=== PATIENT | female | born 1970 | race Caucasian/White ===

== ENCOUNTER 2017-02-09 01:15 | Emergency (ER) | payer SELFPAY ==
[~2017-02-09] VITALS: Ht 149.9 cm; Wt 58.8 kg
[~2017-02-09 01:15] MED LIST: ALBU18HF4 IH; ALBU2.5V7 AEROSOL; DIME25TA2 PO; ESOM20CA PO; FLUT1DIS ORAL INH; HYDR-4246 PO
--- OUTSIDE RECORDS SUMMARY | 2017-02-09 01:20 | XMS REPORT | Continuity of Care Document ---
Author Author [facility] Organization [facility] Address Unknown Phone Unavailable Support Name Relationship Address Phone UBRT BERRY APRN Caregiver [address] [place] [phone] OBEY BRANCH MD Caregiver [address] [place] [address] [place] [phone] KYLE GRIGSBY Next Of Kin Unknown [phone] CP Insurance Providers Payer Name Policy Number Subscriber Name Relationship Self Pay Briseida Woodall 18 Self Advance Directives Directive Response Recorded Date/Time Advanced Directives Type None 11/28/14 10:13pm Problems Medical Problems Problem Onset Date Status LLE Pain Unknown Active Sprain Unknown Active Cough Unknown Active viral syndrome Unknown Active Wrist contusion Unknown Active Wrist contusion Unknown Active Strain of right upper arm Unknown Active Strain of right upper arm Unknown Active Closed head injury Unknown Active Stress reaction Unknown Active Bronchitis Unknown Active Bronchitis Unknown Active Viral syndrome Unknown Active Bronchitis Unknown Active Elbow pain, left Unknown Active Shoulder pain, left Unknown Active Elbow pain, left Unknown Active Asthma exacerbation Unknown Active Asthma exacerbation Unknown Active Anxiety Unknown Active Chest wall pain Unknown Active Anxiety Unknown Active Right ankle pain Unknown Active Right ankle pain Unknown Active Anxiety Unknown Active Chest wall pain Unknown Active Medications Medication Dose Route Sig Days/Qty Instructions Order Date Discontinued Date Status Miscellaneous Information 05/06/12 01/23/13 Discontinued Albuterol Sulfate IH NEEDED 06/06/14 Active [Advair] 10/29/14 Active Albuterol Sulfate Unknown Dose INH NEEDED 11/28/14 Active Social History Social History Problem Response Recorded Date/Time Hx Substance Use No 11/28/2014 10:40pm Hx Alcohol Use No 11/28/2014 10:40pm Tobacco Usage smoke 12/05/2013 3:27am Query Response Start Date Stop Date Smoking Status Unknown if ever smoked Hospital Discharge Instructions No hospital discharge instructions. Plan of Care No plan of care. Functional Status Query Response Date Recorded Physical Hygiene Self November 28, 2014 10:40pm Disabilities None November 28, 2014 10:40pm Devices Used None November 28, 2014 10:40pm Dressing Self November 28, 2014 10:40pm Ambulation Self November 28, 2014 10:40pm Diet Self November 28, 2014 10:40pm Mental Status Alert Oriented November 28, 2014 11:47pm Disabilities None November 28, 2014 10:40pm Devices Used None November 28, 2014 10:40pm Physical Hygiene Self November 28, 2014 10:40pm Dressing Self November 28, 2014 10:40pm Ambulation Self November 28, 2014 10:40pm Diet Self November 28, 2014 10:40pm Allergies, Adverse Reactions, Alerts Allergen Type Severity Reaction Status Last Updated Penicillin Allergy Unknown Active 11/28/14 Aspirin Allergy Severe HIVES AND "THROAT LOCKS UP" Active 11/28/14 FLU Allergy Unknown Active 09/14/14 Immunizations Name Given Type Hx Influenza Vaccination N ALLERGIC Historical Hx Pneumococcal Vaccination No Historical Hx Tetanus, Diptheria, Pertussis N N/A SKIN INTACT Historical Hx Influenza Vaccination N ALLERGIC Historical Hx Tetanus, Diptheria, Pertussis N N/A SKIN INTACT Historical Vital Signs Acute Vital Signs Vital Response Date/Time Temperature (Fahrenheit) 98.2 deg F (96.8 - 99.1) Temperature (Calculated Celsius) 36.19954 degrees C (36.0 - 37.3) Pulse Rate (adult) 94 bpm (60 - 100) Respiratory Rate 20 breaths/min (10 - 20) O2 Sat by Pulse Oximetry 97 % (90 - 100) Blood Pressure 114/66 mm Hg Height 4 ft 11 in Weight 113 lb Body Mass Index 23.0 kg/m^2 Results Test Source Date Result Interp. Ref. Range Comments Activated Partial Thromboplast Time November 28, 2014 10:55pm 35.3 SEC N 24 -36 Alanine Aminotransferase (ALT/SGPT) November 28, 2014 10:55pm 25 U/L N 9- 52 Albumin November 28, 2014 10:55pm 4.1 G/DL N 3.5-5.0 Albumin/Globulin Ratio November 28, 2014 10:55pm 1.4 RATIO N 1.1-2.2 Alkaline Phosphatase November 28, 2014 10:55pm 82 U/L N 38-126 Anion Gap November 28, 2014 10:55pm 13 MEQ/L N 5-15 Aspartate Amino Transf (AST/SGOT) November 28, 2014 10:55pm 14 U/L N 14-36 BUN/Creatinine Ratio November 28, 2014 10:55pm 21 RATIO N 6-26 Band Neutrophils # September 19, 2014 5:32pm 0.4 T/MM3 - Band Neutrophils % September 19, 2014 5:32pm 4.0 % N 0-6 Basophils # (Auto) November 28, 2014 10:55pm 0.0 T/MM3 N 0-0.2 Basophils # (Manual) September 19, 2014 5:32pm 0.0 T/MM3 N 0-0.2 Basophils % (Manual) September 19, 2014 5:32pm 0.0 % N 0-2 Basophils (%) (Auto) November 28, 2014 10:55pm 0.3 % N 0-2 Blood Urea Nitrogen November 28, 2014 10:55pm 17.0 MG/DL N 7-17 Calcium Level November 28, 2014 10:55pm 9.2 MG/DL N 8.4-10.2 Calculated Osmolality November 28, 2014 10:55pm 282 MOSM/KG H 261-280 Carbon Dioxide Level November 28, 2014 10:55pm 26 MEQ/L N 22-30 Chemistry Specimen Hemolysis November 28, 2014 10:55pm < 15 0-25 0-25: No Hemolysis.26-70: Slight Hemolysis - can falsely elevate K and Urine Protein. 71-285: Moderate Hemolysis - can falsely elevate K, Troponin I, CA 19-9, PTH, CSF GLucose, and Urine Protein, and can falsely decrease Phenytoin. 286-999: Gross Hemolysis - can falsely elevate K, Troponin I, CA 19-9, PTH, CSF Glucose, and Urine Protine, and can falsely decrease Phenytoin. Recommend specimen recollection. Chlamydia trachomatis Amplified DNA October 01, 2011 9:06pm Ref lab rpt scanned - --- 10/03/112141 ---CHLAMDNA previously reported as: SENT OUT Chloride Level November 28, 2014 10:55pm 106 MEQ/L N 98-107 Conjugated Bilirubin September 19, 2014 5:32pm 0.00 MG/DL N 0.00-0.30 Creatinine November 28, 2014 10:55pm 0.8 MG/DL N 0.7-1.2 D-Dimer May 06, 2012 6:30am < 150 NG/ML 0-230 <224 NG/ML= PRESUMPTIVE NEGATIVE FOR PE OR DVT>224 NG/ML=ADDITIONAL EVALUATION FOR PE OR DVT RECOMMENDED Eosinophils # (Auto) November 28, 2014 10:55pm 0.2 T/MM3 N 0-0.5 Eosinophils # (Manual) September 19, 2014 5:32pm 0.0 T/MM3 N 0-0.5 Eosinophils % (Manual) September 19, 2014 5:32pm 0.0 % N 0-4 Eosinophils (%) (Auto) November 28, 2014 10:55pm 1.7 % N 0-4 Globulin November 28, 2014 10:55pm 3.0 G/DL N 2.4-3.6 Glomerular Filtration Rate Calc November 28, 2014 10:55pm 78 - Glucose Level November 28, 2014 10:55pm 112 MG/DL H 65-110 Group A Streptococcus Screen September 14, 2014 1:42pm Negative - Strep culture confirmation to follow Hematocrit November 28, 2014 10:55pm 38.7 % N 36-46 Hemoglobin November 28, 2014 10:55pm 12.7 GM/DL N 12-16 Icterus Index November 28, 2014 10:55pm < 2 0-7 Immature Granulocyte # (Auto) November 28, 2014 10:55pm 0.01 T/MM3 N 0.00- 0.03 Immature Granulocyte % (Auto) November 28, 2014 10:55pm 0.1 % N 0.0-0.5 Influenza Type A Antigen September 19, 2014 6:26pm Negative - Negative for Flu A protein antigen. Assay sensitivity is90%. Influenza Type B Antigen September 19, 2014 6:26pm Negative - Negative for Flu B protein antigen. Assay sensitivity is90%. Lab Scanned Report October 03, 2011 9:59pm REFERENCE LAB [id number] - Lymphocytes # (Auto) November 28, 2014 10:55pm 2.1 T/MM3 N 1-4.8 Lymphocytes # (Manual) September 19, 2014 5:32pm 2.2 T/MM3 N 1-4.8 Lymphocytes % (Manual) September 19, 2014 5:32pm 22.0 % L 23-45 Lymphocytes (%) (Auto) November 28, 2014 10:55pm 24.7 % N 23-45 Magnesium Level November 28, 2014 10:55pm 1.9 MG/DL N 1.6-2.3 Mean Corpuscular Hemoglobin November 28, 2014 10:55pm 30.5 UUG N 26-34 Mean Corpuscular Hemoglobin Concent November 28, 2014 10:55pm 32.8 GM/DL N 31-37 Mean Corpuscular Volume November 28, 2014 10:55pm 92.8 UM3 N 80-100 Mean Platelet Volume November 28, 2014 10:55pm 9.0 UM3 L 9.4-12.4 Monocytes # (Auto) November 28, 2014 10:55pm 0.8 T/MM3 N 0-0.8 Monocytes # (Manual) September 19, 2014 5:32pm 0.5 T/MM3 N 0-0.8 Monocytes % (Manual) September 19, 2014 5:32pm 5.0 % N 0-9.0 Monocytes (%) (Auto) November 28, 2014 10:55pm 9.6 % H 0-9.0 GQ-Ssu-A-Type Natriuretic Peptide November 28, 2014 10:55pm 326 PG/ML H 0- 175 Rule in cut points: <50 years old=450; 50-75 years old=900; >75 years old=1800; When utilizing ProBNP rule-in cut points, adjustment for impaired renal function is typically not required. Neutrophils # (Auto) November 28, 2014 10:55pm 5.5 T/MM3 N 1.8-7.7 Neutrophils # (Manual) September 19, 2014 5:32pm 6.4 T/MM3 N 1.8-7.7 Neutrophils % (Manual) September 19, 2014 5:32pm 65.0 % N 33-66 Neutrophils (%) (Auto) November 28, 2014 10:55pm 63.6 % N 33-66 Platelet Count November 28, 2014 10:55pm 365 T/MM3 N 130-400 Potassium Level November 28, 2014 10:55pm 3.6 MEQ/L N 3.6-5 Prothromb Time International Ratio November 28, 2014 10:55pm 1.06 N 0.81- 1.09 THERAPUTIC RANGE=2.00-3.00 FOR ANTI-THROMBOSIS THERAPUTIC RANGE=2.50- 3.50 FOR IMPLANTED VALVE RDW Standard Deviation November 28, 2014 10:55pm 44.7 FL N 36.9-50.2 Reactive Lymphocytes # September 19, 2014 5:32pm 0.4 T/MM3 H 0-0 Reactive Lymphocytes % September 19, 2014 5:32pm 4.0 % H 0-0 Red Blood Count November 28, 2014 10:55pm 4.17 M/MM3 N 4.00-5.20 Sodium Level November 28, 2014 10:55pm 145 MEQ/L H 134-144 Thyroid Stimulating Hormone (TSH) November 28, 2014 10:55pm 0.52 MIU/L N 0.47-4.68 Total Bilirubin November 28, 2014 10:55pm 0.20 MG/DL N 0.20-1.30 Total Protein November 28, 2014 10:55pm 7.1 G/DL N 6.3-8.2 Troponin I November 28, 2014 10:55pm < 0.012 ng/ml 0-0.12 Turbidity November 28, 2014 10:55pm < 20 0-20 Unconjugated Bilirubin September 19, 2014 5:32pm 0.20 MG/DL N 0.00-1.10 Urine Bacteria November 28, 2014 11:51pm None seen - Has specimen been collected/obtained? Y Urine Bilirubin November 28, 2014 11:51pm Negative - Has specimen been collected/obtained? Y Urine Blood November 28, 2014 11:51pm 1+ H - Has specimen been collected/ obtained? Y Urine Collection Type November 28, 2014 11:51pm Cleancatch-midstream - Has specimen been collected/obtained? Y Urine Color November 28, 2014 11:51pm Yellow - Has specimen been collected/obtained? Y Urine Glucose (UA) November 28, 2014 11:51pm Negative - Has specimen been collected/obtained? Y Urine Ketones November 28, 2014 11:51pm Negative - Has specimen been collected/obtained? Y Urine Leukocyte Esterase November 28, 2014 11:51pm Negative - Has specimen been collected/obtained? Y Urine Microscopic Not Indicated October 01, 2011 9:20pm Not indicated - Has specimen been collected/obtained? Y Urine Nitrite November 28, 2014 11:51pm Negative - Has specimen been collected/obtained? Y Urine Protein November 28, 2014 11:51pm Negative - Has specimen been collected/obtained? Y Urine RBC November 28, 2014 11:51pm None seen /HPF - Has specimen been collected/obtained? Y Urine Specific [place] November 28, 2014 11:51pm >=1.030 H - Has specimen been collected/obtained? Y Urine Squamous Epithelial Cells November 28, 2014 11:51pm 0-5 - Has specimen been collected/obtained? Y Urine Turbidity November 28, 2014 11:51pm Clear - Has specimen been collected/obtained? Y Urine Urobilinogen November 28, 2014 11:51pm 0.2 EU/DL - Has specimen been collected/obtained? Y Urine WBC November 28, 2014 11:51pm 1-3 /HPF - Has specimen been collected/obtained? Y Urine pH November 28, 2014 11:51pm 6.0 - Has specimen been collected/ obtained? Y White Blood Count November 28, 2014 10:55pm 8.7 T/MM3 N 4.5-11.0 Blood Culture Blood November 30, 2010 12:39am NO GROWTH AFTER 5 DAYS Wet Prep Vagina October 01, 2011 9:06pm Group A Streptococcus Culture Throat September 14, 2014 2:00pm Name: BRISEIDA WOODALL Unit #: [id number] : 1970 Sex: F Loc / Svc: ED DOS: 11/28/14 Signed Report #: [id number] DIAGNOSTIC IMAGING REPORT TYPE OF EXAM: CHEST, PA & LATERAL Dictated By: JOHN VINES MD INDICATION: ITS.REASON: CHEST PAIN CHEST 2-VIEWS UPRIGHT (PA & LAT) COMPARISON: October 30, 2014 FINDINGS: The lungs are clear without evidence of focal abnormal airspace opacity. There is no pleural effusion or pneumothorax. The heart size, mediastinal contours and pulmonary vascularity are within normal limits. There is no significant skeletal abnormality. IMPRESSION: No acute cardiopulmonary disease. . Procedures Procedure Status Date Provider(s) HYDRATION IV INFUSION INIT completed 09/14/14 HYDRATE IV INFUSION ADD-ON completed 09/19/14 THER/PROPH/DIAG INJ IV PUSH completed 09/19/14 TX/PRO/DX INJ NEW DRUG ADDON completed 09/19/14 TX/PRO/DX INJ NEW DRUG ADDON completed 09/19/14 X-RAY EXAM OF SHOULDER completed 10/04/14 X-RAY EXAM OF ELBOW completed 10/04/14 EMERGENCY DEPT VISIT completed 10/04/14 Encounters Encounter Location Date/Time Departed Emergency Room [facility] 11/28/14 10:09pm Departed Emergency Room [facility] 11/26/14 12:34am Departed Emergency Room [facility] 10/30/14 2:11am Departed Emergency Room [facility] 10/28/14 11:41pm Departed Emergency Room [facility] 10/04/14 2:05pm Departed Emergency Room [facility] 09/19/14 5:45pm Departed Emergency Room [facility] 09/14/14 1:20pm Recent Diagnosis
--- OUTSIDE RECORDS SUMMARY | 2017-02-09 01:20 | XMS REPORT | Continuity of Care Document ---
Author Author [facility] Organization [facility] Address Unknown Phone Unavailable Support Name Relationship Address Phone BURT BERRY APRN Caregiver [address] [place] [phone] CRICKET BOLAND MD Caregiver [facility] [place] [address] [place] [address] KYLE GRIGSBY Next Of Kin Unknown [phone] CP Insurance Providers Payer Name Policy Number Subscriber Name Relationship Self Pay Briseida Woodall 18 Self Advance Directives Directive Response Recorded Date/Time Advanced Directives Type None 11/26/14 12:40am Problems Medical Problems Problem Onset Date Status [...] Unknown Active Right ankle pain Unknown Active Medications Medication Dose Route Sig Days/Qty Instructions Order Date Discontinued Date Status Miscellaneous Information 05/06/12 01/23/13 Discontinued Albuterol Sulfate IH NEEDED 06/06/14 Active Hydrocodone/Acetaminophen 1 Tab PO EVERY 4-6 HOURS PRN PAIN 20 Qty 09/06 Active [Advair] 10/29/14 Active Hydrocodone/Acetaminophen 1-2 Tab PO Every 6 Hours PRN PAIN 15 Qty 03/07 Active Social History Social History Problem Response Recorded Date/Time Hx Substance Use No 11/26/2014 12:55am Hx Alcohol Use No 11/26/2014 12:55am Tobacco Usage smoke 12/05/2013 3:27am Query Response Start Date Stop Date Smoking Status Unknown if ever smoked Hospital Discharge Instructions No hospital discharge instructions. Plan of Care No plan of care. Functional Status Query Response Date Recorded Physical Hygiene Self November 26, 2014 12:55am Disabilities None November 26, 2014 12:55am Devices Used None November 26, 2014 12:55am Dressing Self November 26, 2014 12:55am Ambulation Self November 26, 2014 12:55am Diet Self November 26, 2014 12:55am Mental Status Alert Oriented November 26, 2014 1:44am Disabilities None November 26, 2014 12:55am Devices Used None November 26, 2014 12:55am Physical Hygiene Self November 26, 2014 12:55am Dressing Self November 26, 2014 12:55am Ambulation Self November 26, 2014 12:55am Diet Self November 26, 2014 12:55am Allergies, Adverse Reactions, Alerts Allergen Type Severity Reaction Status Last Updated Penicillin Allergy Unknown Active 10/04/14 Aspirin Allergy Severe HIVES AND "THROAT LOCKS UP" Active 10/04/14 FLU Allergy Unknown Active 09/14/14 Immunizations Name Given Type Hx Influenza Vaccination N ALLERGIC Historical Hx Pneumococcal Vaccination No Historical Hx Tetanus, Diptheria, Pertussis N N/A SKIN INTACT Historical Hx Influenza Vaccination N ALLERGIC Historical Hx Tetanus, Diptheria, Pertussis N N/A SKIN INTACT Historical Vital Signs Acute Vital Signs Vital Response Date/Time Temperature (Fahrenheit) 97.4 deg F (96.8 - 99.1) Temperature (Calculated Celsius) 36.35408 degrees C (36.0 - 37.3) Pulse Rate (adult) 81 bpm (60 - 100) Respiratory Rate 20 breaths/min (10 - 20) O2 Sat by Pulse Oximetry 98 % (90 - 100) Blood Pressure 125/71 mm Hg Height 4 ft 11 in Weight 108 lb Body Mass Index 21.0 kg/m^2 Results Test Source Date Result Interp. Ref. Range Comments Activated Partial Thromboplast Time October 30, 2014 2:00am 35.4 SEC N 24-36 Alanine Aminotransferase (ALT/SGPT) October 30, 2014 2:00am 25 U/L N 9- 52 Albumin October 30, 2014 2:00am 5.2 G/DL H 3.5-5.0 Albumin/Globulin Ratio October 30, 2014 2:00am 1.6 RATIO N 1.1-2.2 Alkaline Phosphatase October 30, 2014 2:00am 111 U/L N 38-126 Anion Gap October 30, 2014 2:00am 18 MEQ/L H 5-15 Aspartate Amino Transf (AST/SGOT) October 30, 2014 2:00am 17 U/L N 14- 36 BUN/Creatinine Ratio October 30, 2014 2:00am 21 RATIO N 6-26 Band Neutrophils # September 19, 2014 5:32pm 0.4 T/MM3 - Band Neutrophils % September 19, 2014 5:32pm 4.0 % N 0-6 Basophils # (Auto) October 30, 2014 2:00am 0.0 T/MM3 N 0-0.2 Basophils # (Manual) September 19, 2014 5:32pm 0.0 T/MM3 N 0-0.2 Basophils % (Manual) September 19, 2014 5:32pm 0.0 % N 0-2 Basophils (%) (Auto) October 30, 2014 2:00am 0.1 % N 0-2 Blood Urea Nitrogen October 30, 2014 2:00am 17.0 MG/DL N 7-17 Calcium Level October 30, 2014 2:00am 10.5 MG/DL H 8.4-10.2 Calculated Osmolality October 30, 2014 2:00am 284 MOSM/KG H 261-280 Carbon Dioxide Level October 30, 2014 2:00am 27 MEQ/L N 22-30 Chemistry Specimen Hemolysis October 30, 2014 2:00am < 15 0-25 0-25 : No Hemolysis.26-70: Slight Hemolysis - can falsely [...] 9:06pm Ref lab rpt scanned - --- 10/03/11 [id number] ---CHLAMDNA previously reported as: SENT OUT Chloride Level October 30, 2014 2:00am 102 MEQ/L N 98-107 Conjugated Bilirubin September 19, 2014 5:32pm 0.00 MG/DL N 0.00-0.30 Creatinine October 30, 2014 2:00am 0.8 MG/DL N 0.7-1.2 D-Dimer May 06, 2012 6:30am < 150 NG/ML 0-230 <224 NG/ML= PRESUMPTIVE NEGATIVE FOR PE OR DVT>224 NG/ML=ADDITIONAL EVALUATION FOR PE OR DVT RECOMMENDED Eosinophils # (Auto) October 30, 2014 2:00am 0.1 T/MM3 N 0-0.5 Eosinophils # (Manual) September 19, 2014 5:32pm 0.0 T/MM3 N 0-0.5 Eosinophils % (Manual) September 19, 2014 5:32pm 0.0 % N 0-4 Eosinophils (%) (Auto) October 30, 2014 2:00am 0.3 % N 0-4 Globulin October 30, 2014 2:00am 3.3 G/DL N 2.4-3.6 Glomerular Filtration Rate Calc October 30, 2014 2:00am 78 - Glucose Level October 30, 2014 2:00am 103 MG/DL N 65-110 Group A Streptococcus Screen September 14, 2014 1:42pm Negative - Strep culture confirmation to follow Hematocrit October 30, 2014 2:00am 41.1 % N 36-46 Hemoglobin October 30, 2014 2:00am 13.9 GM/DL N 12-16 Icterus Index October 30, 2014 2:00am < 2 0-7 Immature Granulocyte # (Auto) October 30, 2014 2:00am 0.03 T/MM3 N 0.00 -0.03 Immature Granulocyte % (Auto) October 30, 2014 2:00am 0.2 % N 0.0-0.5 Influenza Type A Antigen September 19, 2014 6:26pm Negative - Negative for Flu A protein antigen. Assay sensitivity is90%. Influenza Type B Antigen September 19, 2014 6:26pm Negative - Negative for Flu B protein antigen. Assay sensitivity is90%. Lab Scanned Report October 03, 2011 9:59pm [facility] LAB [id number] - Lymphocytes # (Auto) October 30, 2014 2:00am 4.0 T/MM3 N 1-4.8 Lymphocytes # (Manual) September 19, 2014 5:32pm 2.2 T/MM3 N 1-4.8 Lymphocytes % (Manual) September 19, 2014 5:32pm 22.0 % L 23-45 Lymphocytes (%) (Auto) October 30, 2014 2:00am 27.2 % N 23-45 Mean Corpuscular Hemoglobin October 30, 2014 2:00am 31.2 UUG N 26-34 Mean Corpuscular Hemoglobin Concent October 30, 2014 2:00am 33.8 GM/DL N 31-37 Mean Corpuscular Volume October 30, 2014 2:00am 92.4 UM3 N 80-100 Mean Platelet Volume October 30, 2014 2:00am 9.7 UM3 N 9.4-12.4 Monocytes # (Auto) October 30, 2014 2:00am 1.4 T/MM3 H 0-0.8 Monocytes # (Manual) September 19, 2014 5:32pm 0.5 T/MM3 N 0-0.8 Monocytes % (Manual) September 19, 2014 5:32pm 5.0 % N 0-9.0 Monocytes (%) (Auto) October 30, 2014 2:00am 9.4 % H 0-9.0 QJ-Vgr-T-Type Natriuretic Peptide October 30, 2014 2:00am 88 PG/ML N 0- 175 Rule in cut points: <50 years old=450; 50-75 years old=900; >75 years old=1800; When utilizing ProBNP rule-in cut points, adjustment for impaired renal function is typically not required. Neutrophils # (Auto) October 30, 2014 2:00am 9.3 T/MM3 H 1.8-7.7 Neutrophils # (Manual) September 19, 2014 5:32pm 6.4 T/MM3 N 1.8-7.7 Neutrophils % (Manual) September 19, 2014 5:32pm 65.0 % N 33-66 Neutrophils (%) (Auto) October 30, 2014 2:00am 62.8 % N 33-66 Platelet Count October 30, 2014 2:00am 459 T/MM3 H 130-400 Potassium Level October 30, 2014 2:00am 4.1 MEQ/L N 3.6-5 Prothromb Time International Ratio October 30, 2014 2:00am 0.97 N 0.81- 1.09 THERAPUTIC RANGE=2.00-3.00 FOR ANTI-THROMBOSIS THERAPUTIC RANGE=2.50- 3.50 FOR IMPLANTED VALVE RDW Standard Deviation October 30, 2014 2:00am 45.6 FL N 36.9-50.2 Reactive Lymphocytes # September 19, 2014 5:32pm 0.4 T/MM3 H 0-0 Reactive Lymphocytes % September 19, 2014 5:32pm 4.0 % H 0-0 Red Blood Count October 30, 2014 2:00am 4.45 M/MM3 N 4.00-5.20 Sodium Level October 30, 2014 2:00am 147 MEQ/L H 134-144 Total Bilirubin October 30, 2014 2:00am 0.60 MG/DL N 0.20-1.30 Total Protein October 30, 2014 2:00am 8.5 G/DL H 6.3-8.2 Troponin I October 30, 2014 2:00am < 0.012 ng/ml 0-0.12 Turbidity October 30, 2014 2:00am < 20 0-20 Unconjugated Bilirubin September 19, 2014 5:32pm 0.20 MG/DL N 0.00-1.10 Urine Bacteria September 14, 2014 3:00pm None seen - Has specimen been collected/obtained? Y Urine Bilirubin September 14, 2014 3:00pm Negative - Has specimen been collected/obtained? Y Urine Blood September 14, 2014 3:00pm 1+ H - Has specimen been collected /obtained? Y Urine Collection Type September 14, 2014 3:00pm Cleancatch-midstream - Has specimen been collected/obtained? Y Urine Color September 14, 2014 3:00pm Yellow - Has specimen been collected/obtained? Y Urine Glucose (UA) September 14, 2014 3:00pm Negative - Has specimen been collected/obtained? Y Urine Ketones September 14, 2014 3:00pm Trace H - Has specimen been collected/obtained? Y Urine Leukocyte Esterase September 14, 2014 3:00pm Negative - Has specimen been collected/obtained? Y Urine Microscopic Not Indicated October 01, 2011 9:20pm Not indicated - Has specimen been collected/obtained? Y Urine Nitrite September 14, 2014 3:00pm Negative - Has specimen been collected/obtained? Y Urine Protein September 14, 2014 3:00pm Negative - Has specimen been collected/obtained? Y Urine RBC September 14, 2014 3:00pm Trace /HPF - Has specimen been collected/obtained? Y Urine Specific [place] September 14, 2014 3:00pm 1.010 L - Has specimen been collected/obtained? Y Urine Turbidity September 14, 2014 3:00pm Clear - Has specimen been collected/obtained? Y Urine Urobilinogen September 14, 2014 3:00pm 0.2 EU/DL - Has specimen been collected/obtained? Y Urine WBC September 14, 2014 3:00pm None seen /HPF - Has specimen been collected/obtained? Y Urine pH September 14, 2014 3:00pm 5.5 - Has specimen been collected/ obtained? Y White Blood Count October 30, 2014 2:00am 14.8 T/MM3 H 4.5-11.0 Blood Culture Blood November 30, 2010 12:39am NO GROWTH AFTER 5 DAYS Wet Prep Vagina October 01, 2011 9:06pm Group A Streptococcus Culture Throat September 14, 2014 2:00pm Name: BRISEIDA WOODALL Unit #: [id number] : 1970 Sex: F Loc / Svc: ED DOS: 10/30/14 Signed Report #: [id number] DIAGNOSTIC IMAGING REPORT TYPE OF EXAM: CHEST, PA & LATERAL Dictated By: ENRIKE VINES MD INDICATION: ITS.REASON: CHEST PAIN, SHORTNESS OF BREATH CHEST 2-VIEWS UPRIGHT (PA & LAT) COMPARISON: September 19, 2014 FINDINGS: The lungs are clear without [...] Encounters Encounter Location Date/Time Departed Emergency Room [facility] 11/26/14 12:34am Departed Emergency Room [facility] 10/30/14 2:11am Departed Emergency Room [facility] 10/28/14 11:41pm Departed Emergency Room [facility] 10/04/14 2:05pm Departed Emergency Room [facility] 09/19/14 5:45pm Departed Emergency Room [facility] 09/14/14 1:20pm Recent Diagnosis
--- OUTSIDE RECORDS SUMMARY | 2017-02-09 01:20 | XMS REPORT | Continuity of Care Document ---
Author Author [facility] Organization [facility] Address Unknown Phone Unavailable Support Name Relationship Address Phone RENNY INMAN DO Caregiver [facility] [address] [place], [place] [id number] BURT BERRY EXECUTIVE MEETING MANAGER Caregiver [address] [place] [address] KYLE GRIGSBY Next Of Kin Unknown [phone] CP Insurance Providers Payer Name Policy Number Subscriber Name Relationship Self Pay Briseida Woodall 17 Self Advance Directives Directive Response Recorded Date/Time Advanced Directives Type None 10/04/14 2:10pm Problems Medical Problems Problem Onset Date Status [...] Unknown Active Elbow pain, left Unknown Active Medications Medication Dose Route Sig Days/Qty Instructions Order Date Discontinued Date Status Miscellaneous Information 05/06/12 01/23/13 Discontinued Albuterol Sulfate IH NEEDED 06/06/14 Active Hydrocodone/Acetaminophen 1 Tab PO EVERY 4-6 HOURS PRN PAIN 20 Qty 09/06 Active Social History Social History Problem Response Recorded Date/Time Hx Substance Use No 10/04/2014 2:10pm Hx Alcohol Use No 10/04/2014 2:10pm Tobacco Usage smoke 12/05/2013 3:27am Query Response Start Date Stop Date Smoking Status Unknown if ever smoked Hospital Discharge Instructions No hospital discharge instructions. Plan of Care No plan of care. Functional Status Query Response Date Recorded Physical Hygiene Self October 04, 2014 2:10pm Disabilities None October 04, 2014 2:10pm Devices Used None October 04, 2014 2:10pm Dressing Self October 04, 2014 2:10pm Ambulation Self October 04, 2014 2:10pm Diet Self October 04, 2014 2:10pm Mental Status Alert Oriented October 04, 2014 2:10pm Disabilities None October 04, 2014 2:10pm Devices Used None October 04, 2014 2:10pm Physical Hygiene Self October 04, 2014 2:10pm Dressing Self October 04, 2014 2:10pm Ambulation Self October 04, 2014 2:10pm Diet Self October 04, 2014 2:10pm Allergies, Adverse Reactions, Alerts Allergen Type Severity Reaction Status Last Updated Penicillin Allergy Unknown Active 10/04/14 Aspirin Allergy Severe HIVES AND "THROAT LOCKS UP" Active 10/04/14 FLU Allergy Unknown Active 09/14/14 Immunizations Name Given Type Hx Influenza Vaccination No Historical Hx Tetanus, Diptheria, Pertussis N/A SKIN INTACT Historical Hx Influenza Vaccination No Historical Hx Tetanus, Diptheria, Pertussis N/A SKIN INTACT Historical Vital Signs Acute Vital Signs Vital Response Date/Time Temperature (Fahrenheit) 98.0 deg F (96.8 - 99.1) Temperature (Calculated Celsius) 36.26239 degrees C (36.0 - 37.3) Pulse Rate (adult) 68 bpm (60 - 100) Respiratory Rate 14 breaths/min (10 - 20) O2 Sat by Pulse Oximetry 96 % (90 - 100) Blood Pressure 115/74 mm Hg Height 4 ft 11 in Weight 113 lb Body Mass Index 22.0 kg/m^2 Results Test Source Date Result Interp. Ref. Range Comments Activated Partial Thromboplast Time May 06, 2012 6:30am 34.2 SEC N 24 -36 Alanine Aminotransferase (ALT/SGPT) September 19, 2014 5:32pm 20 U/L N 9- 52 Albumin September 19, 2014 5:32pm 4.9 G/DL N 3.5-5.0 Albumin/Globulin Ratio September 19, 2014 5:32pm 1.5 RATIO N 1.1-2.2 Alkaline Phosphatase September 19, 2014 5:32pm 115 U/L N 38-126 Anion Gap September 19, 2014 5:32pm 12 MEQ/L N 5-15 Aspartate Amino Transf (AST/SGOT) September 19, 2014 5:32pm 21 U/L N 14- 36 BUN/Creatinine Ratio September 19, 2014 5:32pm 23 RATIO N 6-26 Band Neutrophils # September 19, 2014 5:32pm 0.4 T/MM3 - Band Neutrophils % September 19, 2014 5:32pm 4.0 % N 0-6 Basophils # (Auto) September 14, 2014 2:09pm 0.0 T/MM3 N 0-0.2 Basophils # (Manual) September 19, 2014 5:32pm 0.0 T/MM3 N 0-0.2 Basophils % (Manual) September 19, 2014 5:32pm 0.0 % N 0-2 Basophils (%) (Auto) September 14, 2014 2:09pm 0.2 % N 0-2 Blood Urea Nitrogen September 19, 2014 5:32pm 16.0 MG/DL N 7-17 Calcium Level September 19, 2014 5:32pm 9.9 MG/DL N 8.4-10.2 Calculated Osmolality September 19, 2014 5:32pm 270 MOSM/KG N 261-280 Carbon Dioxide Level September 19, 2014 5:32pm 27 MEQ/L N 22-30 Chloride Level September 19, 2014 5:32pm 101 MEQ/L N 98-107 Conjugated Bilirubin September 19, 2014 5:32pm 0.00 MG/DL N 0.00-0.30 Creatinine September 19, 2014 5:32pm 0.7 MG/DL N 0.7-1.2 D-Dimer May 06, 2012 6:30am < 150 NG/ML 0-230 <224 NG/ML= PRESUMPTIVE NEGATIVE FOR PE OR DVT>224 NG/ML=ADDITIONAL EVALUATION FOR PE OR DVT RECOMMENDED Eosinophils # (Auto) September 14, 2014 2:09pm 0.2 T/MM3 N 0-0.5 Eosinophils # (Manual) September 19, 2014 5:32pm 0.0 T/MM3 N 0-0.5 Eosinophils % (Manual) September 19, 2014 5:32pm 0.0 % N 0-4 Eosinophils (%) (Auto) September 14, 2014 2:09pm 1.6 % N 0-4 Globulin September 19, 2014 5:32pm 3.2 G/DL N 2.4-3.6 Glucose Level September 19, 2014 5:32pm 95 MG/DL N 65-110 Group A Streptococcus Screen September 14, 2014 1:42pm Negative - Strep culture confirmation to follow Hematocrit September 19, 2014 5:32pm 45.4 % N 36-46 Hemoglobin September 19, 2014 5:32pm 15.2 GM/DL N 12-16 Influenza Type A Antigen September 19, 2014 6:26pm Negative - Negative for Flu A protein antigen. Assay sensitivity is90%. Influenza Type B Antigen September 19, 2014 6:26pm Negative - Negative for Flu B protein antigen. Assay sensitivity is90%. Lymphocytes # (Auto) September 14, 2014 2:09pm 0.9 T/MM3 L 1-4.8 Lymphocytes # (Manual) September 19, 2014 5:32pm 2.2 T/MM3 N 1-4.8 Lymphocytes % (Manual) September 19, 2014 5:32pm 22.0 % L 23-45 Lymphocytes (%) (Auto) September 14, 2014 2:09pm 9.9 % L 23-45 Mean Corpuscular Hemoglobin September 19, 2014 5:32pm 30.3 UUG N 26-34 Mean Corpuscular Hemoglobin Concent September 19, 2014 5:32pm 33.5 GM/DL N 31-37 Mean Corpuscular Volume September 19, 2014 5:32pm 90.4 UM3 N 80-100 Mean Platelet Volume September 19, 2014 5:32pm 9.4 UM3 N 9.4-12.4 Monocytes # (Auto) September 14, 2014 2:09pm 0.6 T/MM3 N 0-0.8 Monocytes # (Manual) September 19, 2014 5:32pm 0.5 T/MM3 N 0-0.8 Monocytes % (Manual) September 19, 2014 5:32pm 5.0 % N 0-9.0 Monocytes (%) (Auto) September 14, 2014 2:09pm 6.2 % N 0-9.0 Neutrophils # (Auto) September 14, 2014 2:09pm 7.8 T/MM3 H 1.8-7.7 Neutrophils # (Manual) September 19, 2014 5:32pm 6.4 T/MM3 N 1.8-7.7 Neutrophils % (Manual) September 19, 2014 5:32pm 65.0 % N 33-66 Neutrophils (%) (Auto) September 14, 2014 2:09pm 82.0 % H 33-66 Platelet Count September 19, 2014 5:32pm 275 T/MM3 N 130-400 Potassium Level September 19, 2014 5:32pm 3.8 MEQ/L N 3.6-5 Prothromb Time International Ratio May 06, 2012 6:30am 0.97 N 0.86- 1.10 THERAPUTIC RANGE=2.00-3.00 FOR ANTI-THROMBOSIS THERAPUTIC RANGE=2.50- 3.50 FOR IMPLANTED VALVE RDW Standard Deviation September 19, 2014 5:32pm 42.9 FL N 36.9-50.2 Red Blood Count September 19, 2014 5:32pm 5.02 M/MM3 N 4.00-5.20 Sodium Level September 19, 2014 5:32pm 140 MEQ/L N 134-144 Total Bilirubin September 19, 2014 5:32pm 0.60 MG/DL N 0.20-1.30 Total Protein September 19, 2014 5:32pm 8.1 G/DL N 6.3-8.2 Troponin I May 06, 2012 6:30am < 0.012 ng/ml 0-0.12 Unconjugated Bilirubin September 19, 2014 5:32pm 0.20 [...] Has specimen been collected/obtained? Y Urine Specific [place] September 14, 2014 3:00pm 1.010 L - [...] been collected/ obtained? Y White Blood Count September 19, 2014 5:32pm 9.8 T/MM3 N 4.5-11.0 Chemistry Specimen Hemolysis September 19, 2014 5:32pm < 15 0-25 0-25 : No Hemolysis.26-70: [...] can falsely decrease Phenytoin. Recommend specimen recollection. Lab Scanned Report October 03, 2011 9:59pm REFERENCE LAB [id number] - Chlamydia trachomatis Amplified DNA October 01, 2011 9:06pm Ref lab rpt scanned - --- 10/03/112141 ---CHLAMDNA previously reported as: SENT OUT Turbidity September 19, 2014 5:32pm < 20 0-20 Reactive Lymphocytes % September 19, 2014 5:32pm 4.0 % H 0-0 Glomerular Filtration Rate Calc September 19, 2014 5:32pm 90 - Reactive Lymphocytes # September 19, 2014 5:32pm 0.4 T/MM3 H 0-0 Immature Granulocyte # (Auto) September 14, 2014 2:09pm 0.01 T/MM3 N 0.00 -0.03 Immature Granulocyte % (Auto) September 14, 2014 2:09pm 0.1 % N 0.0-0.5 Icterus Index September 19, 2014 5:32pm < 2 0-7 UD-Fyu-Y-Type Natriuretic Peptide May 06, 2012 6:30am 36 PG/ML N 0- 175 Rule in cut points: <50 years old=450; 50-75 years old=900; >75 years old=1800; When utilizing ProBNP rule-in cut points, adjustment for impaired renal function is typically not required. Urine Microscopic Not Indicated October 01, 2011 9:20pm Not indicated - Has specimen been collected/obtained? Y Blood Culture Blood November 30, 2010 12:39am NO GROWTH AFTER 5 DAYS Wet Prep Vagina October 01, 2011 9:06pm Group A Streptococcus Culture Throat September 14, 2014 2:00pm Name: BRISEIDA WOODALL Unit #: [id number] : [id number] Sex: F Loc / Svc: ED DOS: Signed Report #: [id number] DIAGNOSTIC IMAGING REPORT TYPE OF EXAM: SHOULDER LEFT 2 VIEW Dictated By: JOHN VINES MD Indication: ITS.REASON: trauma Comparison: January 23, 2013 Findings: There is no acute fracture, dislocation or malalignment identified. Impression: No acute osseous abnormality. . Procedures Procedure Status Date Provider(s) HYDRATION IV INFUSION INIT completed 09/14/14 HYDRATE IV INFUSION ADD-ON completed 09/19/14 THER/PROPH/DIAG INJ IV PUSH completed 09/19/14 TX/PRO/DX INJ NEW DRUG ADDON completed 09/19/14 TX/PRO/DX INJ NEW DRUG ADDON completed 09/19/14 Encounters Encounter Location Date/Time Departed Emergency Room [facility] 10/04/14 2:05pm Departed Emergency Room [facility] 09/19/14 5:45pm Departed Emergency Room [facility] 09/14/14 1:20pm Recent Diagnosis
--- OUTSIDE RECORDS SUMMARY | 2017-02-09 01:20 | XMS REPORT | Continuity of Care Document ---
Author Author [facility] Organization [facility] Address Unknown Phone Unavailable Support Name Relationship Address Phone SHELLEY ROCK MD Caregiver [facility] [address] [place] [address] Unavailable BURT BERRY APRN Caregiver [address] [place] [address] KYLE GRIGSBY Next Of Kin [address] [place] [address] CP Insurance Providers Payer Name Policy Number Subscriber Name Relationship Self Pay Jamison Woodalli 17 Self Problems Medical Problems Problem Onset Date Status LLE Pain Unknown Active Sprain Unknown Active Cough Unknown Active viral syndrome Unknown Active Wrist contusion Unknown Active Wrist contusion Unknown Active Strain of right upper arm Unknown Active Strain of right upper arm Unknown Active Closed head injury Unknown Active Stress reaction Unknown Active Medications Medication Dose Route Sig Days/Qty Instructions Order Date Discontinued Date Status Miscellaneous Information 05/06/12 01/23/13 Discontinued Albuterol Sulfate IH NEEDED 06/06/14 Active Social History Social History Problem Response Recorded Date/Time Smoking Status Unknown if ever smoked 03/07/2014 2:20pm Hx Substance Use No 06/06/2014 11:35pm 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 Plan of Care No plan of care. Functional Status Query Response Date Recorded Physical Hygiene Self June 06, 2014 11:35pm Mental Status Alert July 03, 2014 2:40am Physical Hygiene Self June 06, 2014 11:35pm Allergies, Adverse Reactions, Alerts Allergen Type Severity Reaction Status Last Updated Aspirin Allergy Severe HIVES AND "THROAT LOCKS UP" Active 06/06/14 Immunizations Name Given Type Hx Influenza Vaccination N ALLERGIC Historical Hx Tetanus, Diptheria, Pertussis N/A SKIN INTACT Historical Hx Influenza Vaccination N ALLERGIC Historical Hx Tetanus, Diptheria, Pertussis N/A SKIN INTACT Historical Vital Signs Acute Vital Signs Vital Response Date/Time Temperature (Fahrenheit) 96.6 deg F (96.8 - 99.1) Temperature (Calculated Celsius) 35.02174 degrees C (36.0 - 37.3) Pulse Rate (adult) 102 bpm (60 - 100) Respiratory Rate 20 breaths/min (10 - 20) O2 Sat by Pulse Oximetry 96 % (90 - 100) Blood Pressure 128/68 mm Hg Blood Pressure 128/68 mm Hg Height (Feet) 4 feet Height (Inches) 11.00 inches Weight (Kilograms) 51.6 kg Body Mass Index (BMI) 22.0 Results Test Source Date Result Interp. Ref. Range Comments Activated Partial Thromboplast Time May 06, 2012 6:30am 34.2 SEC N 24 -36 Alanine Aminotransferase (ALT/SGPT) May 06, 2012 6:30am 13 U/L N 9- 52 Albumin May 06, 2012 6:30am 4.1 G/DL N 3.5-5.0 Albumin/Globulin Ratio May 06, 2012 6:30am 1.2 RATIO N 1.1-2.2 Alkaline Phosphatase May 06, 2012 6:30am 108 U/L N 38-126 Anion Gap May 06, 2012 6:30am 11 MEQ/L N 5-15 Aspartate Amino Transf (AST/SGOT) May 06, 2012 6:30am 17 U/L N 14-36 BUN/Creatinine Ratio May 06, 2012 6:30am 18 RATIO N 6-26 Basophils # (Auto) May 06, 2012 6:30am 0.0 T/MM3 N 0-0.2 Basophils (%) (Auto) May 06, 2012 6:30am 0.3 % N 0-2 Blood Urea Nitrogen May 06, 2012 6:30am 11.0 MG/DL N 7-17 Calcium Level May 06, 2012 6:30am 9.6 MG/DL N 8.4-10.2 Calculated Osmolality May 06, 2012 6:30am 270 MOSM/KG N 261-280 Carbon Dioxide Level May 06, 2012 6:30am 27 MEQ/L N 22-30 Chloride Level May 06, 2012 6:30am 103 MEQ/L N 98-107 Conjugated Bilirubin May 06, 2012 6:30am 0.00 MG/DL N 0.00-0.30 Creatinine May 06, 2012 6:30am 0.6 MG/DL L 0.7-1.2 D-Dimer May 06, 2012 6:30am < 150 NG/ML 0-230 <224 NG/ML= PRESUMPTIVE NEGATIVE FOR PE OR DVT>224 NG/ML=ADDITIONAL EVALUATION FOR PE OR DVT RECOMMENDED Eosinophils # (Auto) May 06, 2012 6:30am 0.2 T/MM3 N 0-0.5 Eosinophils (%) (Auto) May 06, 2012 6:30am 1.5 % N 0-4 Globulin May 06, 2012 6:30am 3.4 G/DL N 2.4-3.6 Glucose Level May 06, 2012 6:30am 99 MG/DL N 65-110 Hematocrit May 06, 2012 6:30am 41.9 % N 36-46 Hemoglobin May 06, 2012 6:30am 13.9 GM/DL N 12-16 Lymphocytes # (Auto) May 06, 2012 6:30am 4.1 T/MM3 N 1-4.8 Lymphocytes (%) (Auto) May 06, 2012 6:30am 31.8 % N 23-45 Mean Corpuscular Hemoglobin May 06, 2012 6:30am 30.0 UUG N 26-34 Mean Corpuscular Hemoglobin Concent May 06, 2012 6:30am 33.2 GM/DL N 31-37 Mean Corpuscular Volume May 06, 2012 6:30am 90.5 UM3 N 80-100 Mean Platelet Volume May 06, 2012 6:30am 9.4 UM3 N 9.4-12.4 Monocytes # (Auto) May 06, 2012 6:30am 1.0 T/MM3 H 0-0.8 Monocytes (%) (Auto) May 06, 2012 6:30am 7.6 % N 0-9.0 Neutrophils # (Auto) May 06, 2012 6:30am 7.6 T/MM3 N 1.8-7.7 Neutrophils (%) (Auto) May 06, 2012 6:30am 58.6 % N 33-66 Platelet Count May 06, 2012 6:30am 378 T/MM3 N 130-400 Potassium Level May 06, 2012 6:30am 3.9 MEQ/L N 3.6-5 Prothromb Time International Ratio May 06, 2012 6:30am 0.97 N 0.86- 1.10 THERAPUTIC RANGE=2.00-3.00 FOR ANTI-THROMBOSIS THERAPUTIC RANGE=2.50- 3.50 FOR IMPLANTED VALVE RDW Standard Deviation May 06, 2012 6:30am 44.0 FL N 36.9-50.2 Red Blood Count May 06, 2012 6:30am 4.63 M/MM3 N 4.00-5.20 Sodium Level May 06, 2012 6:30am 141 MEQ/L N 134-144 Total Bilirubin May 06, 2012 6:30am 0.50 MG/DL N 0.20-1.30 Total Protein May 06, 2012 6:30am 7.5 G/DL N 6.3-8.2 Troponin I May 06, 2012 6:30am < 0.012 ng/ml 0-0.12 Unconjugated Bilirubin May 06, 2012 6:30am 0.10 MG/DL N 0.00-1.10 Urine Bilirubin October 01, 2011 9:20pm Negative - Has specimen been collected/obtained? Y Urine Blood October 01, 2011 9:20pm Negative - Has specimen been collected/obtained? Y Urine Collection Type October 01, 2011 9:20pm Voided - Has specimen been collected/obtained? Y Urine Color October 01, 2011 9:20pm Yellow - Has specimen been collected/obtained? Y Urine Glucose (UA) October 01, 2011 9:20pm Negative - Has specimen been collected/obtained? Y Urine Ketones October 01, 2011 9:20pm Negative - Has specimen been collected/obtained? Y Urine Leukocyte Esterase October 01, 2011 9:20pm Negative - Has specimen been collected/obtained? Y Urine Nitrite October 01, 2011 9:20pm Negative - Has specimen been collected/obtained? Y Urine Protein October 01, 2011 9:20pm Negative - Has specimen been collected/obtained? Y Urine Specific [place] October 01, 2011 9:20pm 1.015 - Has specimen been collected/obtained? Y Urine Turbidity October 01, 2011 9:20pm Clear - Has specimen been collected/obtained? Y Urine Urobilinogen October 01, 2011 9:20pm Normal EU/DL - Has specimen been collected/obtained? Y Urine pH October 01, 2011 9:20pm 9.0 H - Has specimen been collected/ obtained? Y White Blood Count May 06, 2012 6:30am 12.9 T/MM3 H 4.5-11.0 Lab Scanned Report October 03, 2011 9:59pm REFERENCE LAB [id number] - Chlamydia trachomatis Amplified DNA October 01, 2011 9:06pm Ref lab rpt scanned - --- 10/03/11 [id number] ---CHLAMDNA previously reported as: SENT OUT Glomerular Filtration Rate Calc May 06, 2012 6:30am 109 - Immature Granulocyte # (Auto) May 06, 2012 6:30am 0.03 T/MM3 N 0.00- 0.03 Immature Granulocyte % (Auto) May 06, 2012 6:30am 0.2 % N 0.0-0.5 YR-Mcd-T-Type Natriuretic Peptide May 06, 2012 6:30am 36 [...] Wet Prep Vagina October 01, 2011 9:06pm Name: BRISEIDA WOODALL Unit #: [id number] : 1970 Sex: F Loc / Svc: ED DOS: 06/06/14 Signed Report #: [id number] DIAGNOSTIC IMAGING REPORT TYPE OF EXAM: RADIUS/ULNA RIGHT 2 VIEW Dictated By: ENRIKE VINES MD INDICATION: ITS.REASON: fall, pain RADIUS/ULNA RIGHT 2 VIEW: Comparison: March 07, 2014 Findings: There is no acute fracture, dislocation or malalignment identified. Impression: No acute osseous abnormality. . Procedures No known history of procedures. Encounters Encounter Location Date/Time Departed Emergency Room [facility] 07/03/14 1:27am Departed Emergency Room [facility] 06/06/14 11:25pm Recent Diagnosis
--- OUTSIDE RECORDS SUMMARY | 2017-02-09 01:20 | XMS REPORT | Continuity of Care Document ---
Author Author [facility] Organization [facility] Address Unknown Phone Unavailable Support Name Relationship Address Phone BURT BERRY APRN Caregiver [address] [place] [address] CRICKET BOLAND MD Caregiver [facility] [place] [address] KYLE GRIGSBY Next Of Kin [address] [place] [address] CP Insurance Providers Payer Name Policy Number Subscriber Name Relationship Self Pay Briseida Woodall 17 Self Problems Medical Problems Problem Onset Date Status LLE Pain Unknown Active Sprain Unknown Active Cough Unknown Active viral syndrome Unknown Active Wrist contusion Unknown Active Wrist contusion Unknown Active Strain of right upper arm Unknown Active Medications Medication Dose Route Sig Days/Qty Instructions Order Date Discontinued Date Status Miscellaneous Information 05/06/12 01/23/13 Discontinued Albuterol Sulfate IH NEEDED 06/06/14 Active Ibuprofen 2 Tab PO Q4H PRN PAIN 5 Days 06/06/14 Active Social History Social History Problem Response Recorded Date/Time Smoking Status Unknown if ever smoked 03/07/2014 2:20pm Chewing Tobacco Status No 06/06/2014 11:35pm Hx Substance Use No 06/06/2014 11:35pm 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 Plan of Care No plan of care. Functional Status Query Response Date Recorded Physical Hygiene Self June 06, 2014 11:35pm Disabilities None June 06, 2014 11:35pm Devices Used None June 06, 2014 11:35pm Dressing Self June 06, 2014 11:35pm Ambulation Self June 06, 2014 11:35pm Diet Self June 06, 2014 11:35pm Mental Status Alert June 06, 2014 11:58pm Disabilities None June 06, 2014 11:35pm Devices Used None June 06, 2014 11:35pm Physical Hygiene Self June 06, 2014 11:35pm Dressing Self June 06, 2014 11:35pm Ambulation Self June 06, 2014 11:35pm Diet Self June 06, 2014 11:35pm Allergies, Adverse [...] F (96.8 - 99.1) Temperature (Calculated Celsius) 35.35610 degrees C (36.0 - 37.3) Pulse Rate [...] Has specimen been collected/obtained? Y Urine Specific [place] October 01, 2011 9:20pm 1.015 - Has [...] Report October 03, 2011 9:59pm REFERENCE LAB [id number] - Chlamydia trachomatis Amplified DNA October 01, 2011 9:06pm Ref lab rpt scanned - --- 10/03/112141 ---CHLAMDNA previously reported as: SENT OUT Glomerular Filtration Rate Calc May 06, 2012 6:30am 109 - Immature Granulocyte # (Auto) May 06, 2012 6:30am 0.03 T/MM3 N 0.00- 0.03 Immature Granulocyte % (Auto) May 06, 2012 6:30am 0.2 % N 0.0-0.5 [id number]-Jqa-N-Type Natriuretic Peptide May 06, 2012 6:30am 36 [...] Wet Prep Vagina October 01, 2011 9:06pm Procedures No known history of procedures. Encounters Encounter Location Date/Time Registered Emergency Room [facility] 06/06/14 11:25pm Recent Diagnosis
--- OUTSIDE RECORDS SUMMARY | 2017-02-09 01:21 | XMS REPORT | Continuity of Care Document ---
Author Author [facility] Organization [facility] Address Unknown Phone Unavailable Support Name Relationship Address Phone SHELLEY ROCK MD Caregiver [facility] [address] [place] [address] Unavailable BURT BERRY APRN Caregiver [place] [address] CALISTA KYLE Next Of Kin Unknown [phone] CP Insurance Providers Payer Name Policy Number Subscriber Name Relationship Self Pay Briseida Woodall 17 Self Advance Directives Directive Response Recorded Date/Time Advanced Directives Type None 09/19/14 5:45pm Problems Medical Problems Problem Onset Date Status [...] Viral syndrome Unknown Active Bronchitis Unknown Active Medications Medication Dose Route Sig Days/Qty Instructions Order Date Discontinued Date Status Miscellaneous Information 05/06/12 01/23/13 Discontinued Albuterol Sulfate IH NEEDED 06/06/14 Active Ciprofloxacin HCl 500 Mg PO TWICE A DAY 20 Qty 09/14/14 Active Benzonatate 100 Mg PO THREE TIMES A DAY PRN COUGH 30 Qty 09/14/14 Active Social History Social History Problem Response Recorded Date/Time Chewing Tobacco Status No 09/19/2014 5:50pm Hx Substance Use No 09/19/2014 5:50pm Hx Alcohol Use No 09/19/2014 5:50pm Tobacco Usage smoke 12/05/2013 3:27am Query Response Start Date Stop Date Smoking Status Unknown if ever smoked Hospital Discharge Instructions No hospital discharge instructions. Plan of Care No plan of care. Functional Status Query Response Date Recorded Physical Hygiene Self September 19, 2014 5:50pm Disabilities None September 19, 2014 5:50pm Devices Used None September 19, 2014 5:50pm Dressing Self September 19, 2014 5:50pm Ambulation Self September 19, 2014 5:50pm Diet Self September 19, 2014 5:50pm Mental Status Alert September 19, 2014 7:16pm Disabilities None September 19, 2014 5:50pm Devices Used None September 19, 2014 5:50pm Physical Hygiene Self September 19, 2014 5:50pm Dressing Self September 19, 2014 5:50pm Ambulation Self September 19, 2014 5:50pm Diet Self September 19, 2014 5:50pm Allergies, Adverse Reactions, Alerts Allergen Type Severity Reaction Status Last Updated Penicillin Allergy Unknown Active 09/19/14 Aspirin Allergy Severe HIVES AND "THROAT LOCKS UP" Active 09/19/14 FLU Allergy Unknown Active 09/14/14 Immunizations Name Given Type Hx Influenza Vaccination No Historical Hx Tetanus, Diptheria, Pertussis N/A SKIN INTACT Historical Hx Influenza Vaccination No Historical Hx Tetanus, Diptheria, Pertussis N/A SKIN INTACT Historical Vital Signs Acute Vital Signs Vital Response Date/Time Temperature (Fahrenheit) 98.8 deg F (96.8 - 99.1) Temperature (Calculated Celsius) 37.58976 degrees C (36.0 - 37.3) Pulse Rate (adult) 105 bpm (60 - 100) Respiratory Rate 20 breaths/min (10 - 20) O2 Sat by Pulse Oximetry 96 % (90 - 100) Blood Pressure 102/64 mm Hg Height 4 ft 11 in [...] Has specimen been collected/obtained? Y Urine Specific [place] September 14, 2014 3:00pm 1.010 L - [...] Report October 03, 2011 9:59pm REFERENCE LAB [id number] - Chlamydia trachomatis Amplified DNA October 01, [...] September 19, 2014 5:32pm < 2 0-7 PE-Gmk-Z-Type Natriuretic Peptide May 06, 2012 6:30am 36 [...] 2014 2:00pm Name: BRISEIDA WOODALL Unit #: [id number] : 1970 Sex: F Loc / Svc: ED DOS: 09/14/14 Signed Report #: [id number] DIAGNOSTIC IMAGING REPORT TYPE OF EXAM: CHEST, PA & LATERAL Dictated By: JOHN VINES MD INDICATION: ITS.REASON: COUGH, CHEST PAIN WITH COUGH CHEST 2-VIEWS UPRIGHT (PA & LAT): COMPARISON: October 01, 2013 FINDINGS: The lungs are clear without evidence of focal abnormal airspace opacity. There is no pleural effusion or pneumothorax. The heart size, mediastinal contours and pulmonary vascularity are within normal limits. There is no significant skeletal abnormality. IMPRESSION: No acute cardiopulmonary disease. . Procedures No known history of procedures. Encounters Encounter Location Date/Time Departed Emergency Room [facility] 09/19/14 5:45pm Departed Emergency Room [facility] 09/14/14 1:20pm Departed Emergency Room [facility] 07/03/14 1:27am Recent Diagnosis
--- OUTSIDE RECORDS SUMMARY | 2017-02-09 01:21 | XMS REPORT | Continuity of Care Document ---
Author Author [facility] Organization [facility] Address Unknown Phone Unavailable Support Name Relationship Address Phone JENNIFER OCHOA MD Caregiver [address] [place] [address] [place] [address] BURT BERRY APRN Caregiver [address] [place] [address] CALISTAKYLE CHAVIRA Next Of Kin Unknown [phone] CP Insurance Providers Payer Name Policy Number Subscriber Name Relationship Self Pay Briseida Woodall 17 Self Advance Directives Directive Response Recorded Date/Time Advanced Directives Type None 10/28/14 11:42pm Problems Medical Problems Problem Onset Date Status [...] exacerbation Unknown Active Asthma exacerbation Unknown Active Medications Medication Dose Route Sig Days/Qty Instructions Order Date Discontinued Date Status Miscellaneous Information 05/06/12 01/23/13 Discontinued Albuterol Sulfate IH NEEDED 06/06/14 Active Hydrocodone/Acetaminophen 1 Tab PO EVERY 4-6 HOURS PRN PAIN 20 Qty 09/06 Active [Advair] 10/29/14 Active Social History Social History Problem Response Recorded Date/Time Chewing Tobacco Status No 10/29/2014 12:45am Hx Substance Use No 10/29/2014 12:45am Hx Alcohol Use No 10/29/2014 12:45am Tobacco Usage smoke 12/05/2013 3:27am Query Response Start Date Stop Date Smoking Status Unknown if ever smoked Hospital Discharge Instructions No hospital discharge instructions. Plan of Care No plan of care. Functional Status Query Response Date Recorded Physical Hygiene Self October 29, 2014 12:45am Disabilities None October 29, 2014 12:45am Devices Used None October 29, 2014 12:45am Dressing Self October 29, 2014 12:45am Ambulation Self October 29, 2014 12:45am Diet Self October 29, 2014 12:45am Mental Status Alert October 29, 2014 12:51am Disabilities None October 29, 2014 12:45am Devices Used None October 29, 2014 12:45am Physical Hygiene Self October 29, 2014 12:45am Dressing Self October 29, 2014 12:45am Ambulation Self October 29, 2014 12:45am Diet Self October 29, 2014 12:45am Allergies, Adverse Reactions, Alerts Allergen Type Severity [...] Vital Signs Vital Response Date/Time Temperature (Fahrenheit) 97.9 deg F (96.8 - 99.1) Temperature (Calculated Celsius) 36.61982 degrees C (36.0 - 37.3) Pulse Rate (adult) 96 bpm (60 - 100) Respiratory Rate 24 breaths/min (10 - 20) O2 Sat by Pulse Oximetry 99 % (90 - 100) Blood Pressure 108/64 mm Hg Height 4 ft 11 in Weight 110 lb Body Mass Index 22.0 kg/m^2 Results [...] Has specimen been collected/obtained? Y Urine Specific [place] September 14, 2014 3:00pm 1.010 L - [...] Report October 03, 2011 9:59pm REFERENCE LAB [id number] - Chlamydia trachomatis Amplified DNA October 01, [...] September 19, 2014 5:32pm < 2 0-7 TU-Dly-K-Type Natriuretic Peptide May 06, 2012 6:30am 36 [...] 2014 2:00pm Name: BRISEIDA WOODALL Unit #: [id number] : 1970 Sex: F Loc / Svc: ED DOS: Signed Report #: [id number] DIAGNOSTIC IMAGING REPORT TYPE OF EXAM: SHOULDER [...] VISIT completed 10/04/14 Encounters Encounter Location Date/Time Registered Emergency Room [facility] 10/28/14 11:41pm Departed Emergency Room [facility] 10/04/14 2:05pm Departed Emergency Room [facility] 09/19/14 5:45pm Departed Emergency Room [facility] 09/14/14 1:20pm Recent Diagnosis
--- OUTSIDE RECORDS SUMMARY | 2017-02-09 01:21 | XMS REPORT | Continuity of Care Document ---
Author Author [facility] Organization [facility] Address Unknown Phone Unavailable Support Name Relationship Address Phone BURT BERRY APRN Caregiver [address] [phone] OBEY BRANCH MD Caregiver [address] [place] [address] [place] [phone] CALISTA KYLE Next Of Kin [address] [place] [address] CP Insurance Providers Payer Name Policy Number Subscriber Name Relationship Workers Compensation Briseida Woodall 18 Self Problems Medical Problems Problem Onset Date Status LLE Pain Unknown Active Sprain Unknown Active Cough Unknown Active viral syndrome Unknown Active Wrist contusion Unknown Active Wrist contusion Unknown Active Medications Medication Dose Route Sig Days/Qty Instructions Order Date Discontinued Date Status Miscellaneous Information 05/06/12 01/23/13 Discontinued Social History Social History Problem Response Recorded Date/Time Smoking Status Unknown if ever smoked 03/07/2014 2:20pm Hx Alcohol Use Y OCC[employer]AL [employer] 03/07/2014 2:20pm Query Response Start Date Stop Date Smoking Status Current every day smoker Hospital Discharge Instructions No hospital discharge instructions. Plan of Care No plan of care. Functional Status No functional status results. Allergies, Adverse Reactions, Alerts Allergen Type Severity Reaction Status Last Updated Aspirin Allergy Severe HIVES AND "THROAT LOCKS UP" Active 03/07/14 Immunizations Name Given Type Hx Influenza Vaccination N ALLERGIC Historical Hx Tetanus, Diptheria, Pertussis N/A SKIN INTACT Historical Hx Influenza Vaccination N ALLERGIC Historical Hx Tetanus, Diptheria, Pertussis N/A SKIN INTACT Historical Vital Signs Acute Vital Signs Vital Response Date/Time Temperature (Fahrenheit) 97.3 deg F (96.8 - 99.1) Temperature (Calculated Celsius) 36.31097 degrees C (36.0 - 37.3) Pulse Rate (adult) 91 bpm (60 - 100) Respiratory Rate 16 breaths/min (10 - 20) O2 Sat by Pulse Oximetry 95 % (90 - 100) Blood Pressure 106/71 mm Hg Height 4 ft 11 in [...] Has specimen been collected/obtained? Y Urine Specific [place] October 01, 2011 9:20pm 1.015 - Has [...] Report October 03, 2011 9:59pm REFERENCE LAB [id number] - Chlamydia trachomatis Amplified DNA October 01, 2011 9:06pm Ref lab rpt scanned - --- 10/03/112141 ---CHLAMDNA previously reported as: SENT OUT Glomerular Filtration Rate Calc May 06, 2012 6:30am 109 - Immature Granulocyte # (Auto) May 06, 2012 6:30am 0.03 T/MM3 N 0.00- 0.03 Immature Granulocyte % (Auto) May 06, 2012 6:30am 0.2 % N 0.0-0.5 MO-Zmn-P-Type Natriuretic Peptide May 06, 2012 6:30am 36 [...] Encounters Encounter Location Date/Time Departed Emergency Room [facility] 03/07/14 12:33pm Recent Diagnosis
--- OUTSIDE RECORDS SUMMARY | 2017-02-09 01:21 | XMS REPORT | Continuity of Care Document ---
Author Author [facility] Organization [facility] Address Unknown Phone Unavailable Support Name Relationship Address Phone JENNIFER OCHOA MD Caregiver [address] [place] [address] [place] [address] BURT BERRY APRN Caregiver [address] [place] [phone] CALISTAKYLE CHAVIRA Next Of Kin Unknown [phone] CP Insurance Providers Payer Name Policy Number Subscriber Name Relationship Self Pay Briseida Woodall 18 Self Advance Directives Directive Response Recorded Date/Time Advanced Directives Type None 12/17/14 2:39am Problems Medical Problems Problem Onset Date Status [...] Unknown Active Chest wall pain Unknown Active Increased urinary frequency Unknown Active Medications Medication Dose Route Sig Days/Qty Instructions Order Date Discontinued Date Status Miscellaneous Information 05/06/12 01/23/13 Discontinued Albuterol Sulfate IH NEEDED 06/06/14 Active [Advair] 10/29/14 Active Albuterol Sulfate Unknown Dose INH NEEDED 11/28/14 Active Phenazopyridine HCl 200 Mg PO THREE TIMES A DAY PRN DYSURIA 15 Qty Take 1 tab, by mouth, 3 times a day AFTER meals, as needed. 12/17/14 Active Fosfomycin Tromethamine 3 G PO ONE TIME 1 Qty 12/17/14 Active Social History Social History Problem Response Recorded Date/Time Hx Substance Use No 12/17/2014 2:58am Hx Alcohol Use No 12/17/2014 2:58am Tobacco Usage smoke 12/05/2013 3:27am Query Response Start Date Stop Date Smoking Status Unknown if ever smoked Hospital Discharge Instructions No hospital discharge instructions. Plan of Care No plan of care. Functional Status Query Response Date Recorded Physical Hygiene Self December 17, 2014 2:58am Disabilities None December 17, 2014 2:58am Devices Used None December 17, 2014 2:58am Dressing Self December 17, 2014 2:58am Ambulation Self December 17, 2014 2:58am Diet Self December 17, 2014 2:58am Mental Status Alert Oriented December 17, 2014 2:58am Disabilities None December 17, 2014 2:58am Devices Used None December 17, 2014 2:58am Physical Hygiene Self December 17, 2014 2:58am Dressing Self December 17, 2014 2:58am Ambulation Self December 17, 2014 2:58am Diet Self December 17, 2014 2:58am Allergies, Adverse Reactions, Alerts Allergen Type Severity Reaction Status Last Updated Penicillin Allergy Unknown Active 12/17/14 Aspirin Allergy Severe HIVES AND "THROAT LOCKS UP" Active 12/17/14 FLU Allergy Unknown Active 09/14/14 Immunizations Name Given Type Hx Influenza Vaccination N ALLERGIC Historical Hx Pneumococcal Vaccination No Historical Hx Tetanus, Diptheria, Pertussis N N/A SKIN INTACT Historical Hx Influenza Vaccination N ALLERGIC Historical Hx Tetanus, Diptheria, Pertussis N N/A SKIN INTACT Historical Vital Signs Acute Vital Signs Vital Response Date/Time Temperature (Fahrenheit) 97.5 deg F (96.8 - 99.1) Temperature (Calculated Celsius) 36.66262 degrees C (36.0 - 37.3) Pulse Rate (adult) 81 bpm (60 - 100) Respiratory Rate 20 breaths/min (10 - 20) O2 Sat by Pulse Oximetry 96 % (90 - 100) Blood Pressure 117/79 mm Hg Height 4 ft 11 in Weight 111 lb Body Mass Index 22.0 kg/m^2 Results [...] antigen. Assay sensitivity is90%. Lab Scanned Report December 01, 2014 4:23pm REFERENCE LAB - Lymphocytes # (Auto) November 28, 2014 [...] 28, 2014 10:55pm 9.6 % H 0-9.0 RJ-Aof-Y-Type Natriuretic Peptide November 28, 2014 10:55pm 326 [...] 19, 2014 5:32pm 0.20 MG/DL N 0.00-1.10 Urinalysis Comment December 17, 2014 2:35am Microscopic not ind. - Has specimen been collected/obtained? Y Urine Bacteria November 28, 2014 11:51pm None seen - Has specimen been collected/obtained? Y Urine Bilirubin December 17, 2014 2:35am Negative - Has specimen been collected/obtained? Y Urine Blood December 17, 2014 2:35am Trace-intact H - Has specimen been collected/obtained? Y Urine Collection Type December 17, 2014 2:35am Cleancatch-midstream - Has specimen been collected/obtained? Y Urine Color December 17, 2014 2:35am Yellow - Has specimen been collected/obtained? Y Urine Glucose (UA) December 17, 2014 2:35am Negative - Has specimen been collected/obtained? Y Urine Ketones December 17, 2014 2:35am Negative - Has specimen been collected/obtained? Y Urine Leukocyte Esterase December 17, 2014 2:35am Negative - Has specimen been collected/obtained? Y Urine Microscopic Not Indicated October 01, 2011 9:20pm Not indicated - Has specimen been collected/obtained? Y Urine Nitrite December 17, 2014 2:35am Negative - Has specimen been collected/obtained? Y Urine Protein December 17, 2014 2:35am Negative - Has specimen been collected/obtained? Y Urine RBC November 28, 2014 11:51pm None seen /HPF - Has specimen been collected/obtained? Y Urine Specific [place] December 17, 2014 2:35am <=1.005 L - Has specimen been collected/obtained? Y Urine Squamous Epithelial Cells November 28, 2014 11:51pm 0-5 - Has specimen been collected/obtained? Y Urine Turbidity December 17, 2014 2:35am Clear - Has specimen been collected/obtained? Y Urine Urobilinogen December 17, 2014 2:35am 0.2 EU/DL - Has specimen been collected/obtained? Y Urine WBC November 28, 2014 11:51pm 1-3 /HPF - Has specimen been collected/obtained? Y Urine pH December 17, 2014 2:35am 6.0 - Has specimen been collected/ obtained? Y White Blood Count November 28, 2014 10:55pm 8.7 T/MM3 N 4.5-11.0 Blood Culture Blood November 30, 2010 12:39am NO GROWTH AFTER 5 DAYS Wet Prep Vagina October 01, 2011 9:06pm Group A Streptococcus Culture Throat September 14, 2014 2:00pm Name: BRISEIDA WOODALL Unit #: [id number] : 1970 Sex: F Loc / Svc: ED DOS: 11/28/14 Signed Report #: [id number] DIAGNOSTIC IMAGING REPORT TYPE OF EXAM: CHEST, PA & LATERAL Dictated By: ENRIKE VINES MD INDICATION: ITS.REASON: CHEST PAIN CHEST [...] disease. . Procedures Procedure Status Date Provider(s) HYDRATE IV INFUSION ADD-ON completed 09/19/14 THER/PROPH/DIAG INJ IV PUSH completed 09/19/14 TX/PRO/DX INJ NEW DRUG ADDON completed 09/19/14 TX/PRO/DX INJ NEW DRUG ADDON completed 09/19/14 X-RAY EXAM OF SHOULDER completed 10/04/14 X-RAY EXAM OF ELBOW completed 10/04/14 EMERGENCY DEPT VISIT completed 10/04/14 Encounters Encounter Location Date/Time Departed Emergency Room [facility] 12/17/14 2:35am Departed Emergency Room [facility] 11/28/14 10:09pm Departed Emergency Room [facility] 11/26/14 12:34am Departed Emergency Room [facility] 10/30/14 2:11am Departed Emergency Room [facility] 10/28/14 11:41pm Departed Emergency Room [facility] 10/04/14 2:05pm Departed Emergency Room [facility] 09/19/14 5:45pm Recent Diagnosis
--- OUTSIDE RECORDS SUMMARY | 2017-02-09 01:21 | XMS REPORT | Continuity of Care Document ---
Author Author [facility] Organization [facility] Address Unknown Phone Unavailable Support Name Relationship Address Phone JANUARYDULCE DO Caregiver [address] [address] Unavailable JANET RUIZ APRN Caregiver [address] [place] [address] Unavailable KYLE GRIGSBY Next Of Kin [address] [place] [address] Insurance Providers Guarantor Jose CJamisoni Address [address] [place] [address] Email [email or web address] Payer Self Pay Subscriber's Name Jamison Woodalli Relationship 18 Self Chief Complaint and Reason for Visit Chief Complaint Abdominal Pain Reason for Visit [id number] Laxative abuse GERD (gastroesophageal reflux disease) Constipation Problems Active Problems Medical Problem Onset Date Status Abdominal pain Unknown Acute Acute diarrhea Unknown Acute Acute meniscal injury of right knee Unknown Acute Anxiety Unknown Acute Anxiety Unknown Acute Anxiety Unknown Acute Asthma Unknown Acute Asthma exacerbation Unknown Acute Asthma exacerbation Unknown Acute Asthma exacerbation Unknown Acute Bronchitis Unknown Acute Bronchitis Unknown Acute Bronchitis Unknown Acute Chest wall pain Unknown Acute Chest wall pain Unknown Acute Chest wall pain Unknown Acute Chest wall pain Unknown Acute Chest wall pain Unknown Acute Closed head injury Unknown Acute Common cold virus Unknown Acute Costochondritis Unknown Acute Cough Unknown Acute Cough Unknown Acute Elbow pain, left Unknown Acute Elbow pain, left Unknown Acute Forearm contusion Unknown Acute Gastroenteritis Unknown Acute Increased urinary frequency Unknown Acute Increased urinary frequency Unknown Acute Intercostal muscle pain Unknown Acute LLE Pain Unknown Acute Right ankle pain Unknown Acute Right ankle pain Unknown Acute Shoulder pain, left Unknown Acute Shoulder strain Unknown Acute Sprain Unknown Acute Strain of right upper arm Unknown Acute Strain of right upper arm Unknown Acute Stress reaction Unknown Acute Vertigo Unknown Acute Viral gastroenteritis Unknown Acute Viral syndrome Unknown Acute Wrist contusion Unknown Acute Wrist contusion Unknown Acute viral syndrome Unknown Acute Past Problems Medical Problem Onset Date Constipation Unknown Cough Unknown GERD (gastroesophageal reflux disease) Unknown Laxative abuse Unknown Left forearm pain Unknown Nausea & vomiting Unknown Ureterolithiasis Unknown Ureterolithiasis Unknown Medications Current Home Medications Medication Dose Units Route Directions Days Qty Instructions Start Date Albuterol Sulfate 2.5 Mg/3 Ml Vial.neb 2.5 Mg Aerosol Tx. Resp.tx Q4h While Awake as needed for Shortness Of Air 10/06/16 Albuterol Sulfate (Ventolin Hfa) 18 Gm Hfa.aer.ad 1 Puff Inhalation As Needed as needed for Shortness Of Air 06/06/14 Dimenhydrinate (Dramamine) 25 Mg Tab.chew 25 Mg Oral As Needed as needed for Vertigo 08/22/16 Esomeprazole Mag Trihydrate (Nexium) 20 Mg Capsule 20 Mg Oral Daily 10/06/16 Fluticasone/Salmeterol (Advair 100-50 Diskus) 1 Disk W/Dev Inhaler 1 Puff Oral Inhalation Resp.tx Twice A Day as needed for Shortness Of Air Hydrocodone/Acetaminophen ([place] 5-325 Tablet) 5-325 Tablet 1-2 Tab Oral Q6h/0300,0900,1500,2100 as needed for Pain 20 Tablet 10/21/16 Past Home Medications Medication Directions Ordered Status Fluticasone/Salmeterol (Advair 100-50 Diskus) 1 Disk W/Dev Inhaler, 1 Puff Oral Inhalation Twice A Day 02/15/15 Discontinued Meclizine Hcl 25 Mg Tablet, 25 Mg Oral Twice A Day 05/16/15 Discontinued Miscellaneous Information (No Known Medications) Mis, 05/06/12 Discontinued Tamsulosin Hcl (Flomax) 0.4 Mg Capsule, 0.4 Mg Oral Bedtime 10/21/16 Discontinued Social History Social History Problem Response Recorded Date/Time Onset Date Status Hx Substance Use No 10/20/2016 11:51pm Not Applicable Not Applicable Hx Alcohol Use No 10/20/2016 11:51pm Not Applicable Not Applicable Tobacco Usage smoke 12/05/2013 3:27am Not Applicable Not Applicable Query Response Start Date Stop Date Smoking Status Unknown if ever smoked Hospital Discharge Instructions No hospital discharge instructions. Plan of Care Discharge Date 10/21/16 1:13am Disposition 01 DISCHARGED HOME, SELF-CARE Condition at Discharge Improved Instructions/Education Provided Kidney Stones (ED) Gastroesophageal Reflux Disease (ED) Prescriptions See Medication Section Referrals MIKE RAMIREZ DO Order Date: 1 Week Address: [address] [place] [phone] Note: Additional Instructions/Education Take the pain medication as needed for pain. Take your nexium twice a day until you see your doctor. Follow up with your doctor later this week. Care Plan and Goals Physician Care Plan Problem: Ureterolithiasis Goal: Follow up with primary care provider Instructions: Take medications and follow care plan as discussed/written Functional Status No functional status results. Allergies, Adverse Reactions, Alerts Allergen Type Severity Reaction Status Last Updated Penicillin Allergy Unknown Active 10/20/16 Latex Allergy Mild MILD IRRITATON PER PT Active 10/20/16 Aspirin Allergy Severe HIVES AND "THROAT LOCKS UP" Active 10/20/16 Promethazine Allergy Unknown Active 10/20/16 Tamsulosin Adverse Reaction Unknown vomiting Active 10/21/16 FLU Allergy Unknown Active 09/14/14 Immunizations Query Response on File Recorded Date/Time Hx Influenza Vaccination N REPORTS IT MAKES HER SICK 06/12/15 10:30pm Hx Pneumococcal Vaccination No 06/12/15 10:30pm Hx Tetanus, Diptheria, Pertussis No 06/12/15 10:30pm Hx Influenza Vaccination N REPORTS IT MAKES HER SICK 06/12/15 10:30pm Hx Tetanus, Diptheria, Pertussis No 06/12/15 10:30pm DTaP Vaccine History 201410/20/16 11:51pm Influenza Vaccine Hx ALLERGY 10/20/16 11:51pm Vital Signs Acute Vital Signs Vital Response Date/Time Temperature (Fahrenheit) 97.6 deg F (96.8 - 99.1) 10/21/2016 1:13am Temperature (Calculated Celsius) 36.73172 degrees C (36.0 - 37.3) 10/21/2016 1:13am Pulse Rate (adult) 81 bpm (60 - 100) 10/21/2016 1:13am Respiratory Rate 16 breaths/min (10 - 20) 10/21/2016 1:13am O2 Sat by Pulse Oximetry 97 % (90 - 100) 10/21/2016 1:13am Blood Pressure 110/75 mm Hg 10/21/2016 1:13am Height (Feet) 4 feet 10/20/2016 11:27pm Height (Inches) 11.00 inches 10/20/2016 11:27pm Weight (Kilograms) 59.300 kg 10/20/2016 11:27pm Body Mass Index (BMI) 26.0 10/20/2016 11:27pm Results Laboratory Results Test Name Result Units Flags Reference Collection Date/Time Result Date/ Time Comments White Blood Count 12.8 T/MM3 H 4.5-11.0 10/20/2016 11:56pm 10/21/2016 12 :01am Red Blood Count 4.29 M/MM3 4.00-5.20 10/20/2016 11:56pm 10/21/2016 12: 01am Hemoglobin 13.0 GM/DL 12-16 10/20/2016 11:56pm 10/21/2016 12:01am Hematocrit 39.2 % 36-46 10/20/2016 11:56pm 10/21/2016 12:01am Mean Corpuscular Volume 91.4 UM3 80-100 10/20/2016 11:56pm 10/21/2016 12:01am Mean Corpuscular Hemoglobin 30.3 UUG 26-34 10/20/2016 11:56pm 2016 12:01am Mean Corpuscular Hemoglobin Concent 33.2 GM/DL 31-37 10/20/2016 11:56pm 10/21/2016 12:01am RDW Standard Deviation 43.1 FL 36.9-50.2 10/20/2016 11:56pm 10/21/2016 12:01am Platelet Count 334 T/MM3 130-400 10/20/2016 11:56pm 10/21/2016 12:01am Mean Platelet Volume 9.4 UM3 9.4-12.4 10/20/2016 11:56pm 10/21/2016 12: 01am Neutrophils (%) (Auto) 70.2 % H 33-66 10/20/2016 11:56pm 10/21/2016 12: 01am Lymphocytes (%) (Auto) 21.9 % L 23-45 10/20/2016 11:56pm 10/21/2016 12: 01am Monocytes (%) (Auto) 6.1 % 0-9.0 10/20/2016 11:56pm 10/21/2016 12:01am Eosinophils (%) (Auto) 1.3 % 0-4 10/20/2016 11:56pm 10/21/2016 12:01am Basophils (%) (Auto) 0.4 % 0-2 10/20/2016 11:56pm 10/21/2016 12:01am Immature Granulocyte % (Auto) 0.1 % 0.0-0.5 10/20/2016 11:56pm 2016 12:01am Absolute Neutrophils (auto) 9.0 T/MM3 H 1.8-7.7 10/20/2016 11:56pm 10/21 12:01am Absolute Lymphocytes (auto) 2.8 T/MM3 1-4.8 10/20/2016 11:56pm 2016 12:01am Absolute Monocytes (auto) 0.8 T/MM3 0-0.8 10/20/2016 11:56pm 2016 12:01am Absolute Eosinophils (auto) 0.2 T/MM3 0-0.5 10/20/2016 11:56pm 2016 12:01am Absolute Basophils (auto) 0.1 T/MM3 0-0.2 10/20/2016 11:56pm 2016 12:01am Absolute Immature Granulocyte (auto 0.01 T/MM3 0.00-0.03 10/20/2016 11: 56pm 10/21/2016 12:01am Icterus Index < 2 0-7 10/20/2016 11:56pm 10/21/2016 12:08am Chemistry Specimen Hemolysis < 15 0-25 10/20/2016 11:56pm 10/21/2016 12:08am 0-25: Specimen Exhibited No Hemolysis. Turbidity < 20 0-20 10/20/2016 11:56pm 10/21/2016 12:08am Sodium Level 139 MEQ/L 134-144 10/20/2016 11:56pm 10/21/2016 12:08am Potassium Level 3.7 MEQ/L 3.6-5 10/20/2016 11:5610/21/2016 12:08am Chloride Level 104 MEQ/L 98-107 10/20/2016 11:56pm 10/21/2016 12:08am Carbon Dioxide Level 26 MEQ/L 22-30 10/20/2016 11:56pm 10/21/2016 12: 08am Anion Gap 9 MEQ/L 5-15 10/20/2016 11:56pm 10/21/2016 12:08am Blood Urea Nitrogen 14.0 MG/DL 7-17 10/20/2016 11:56pm 10/21/2016 12: 08am Creatinine 0.7 MG/DL 0.7-1.2 10/20/2016 11:56pm 10/21/2016 12:08am BUN/Creatinine Ratio 20 RATIO 6-26 10/20/2016 11:56pm 10/21/2016 12: 08am Glomerular Filtration Rate Calc 90 10/20/2016 11:56pm 10/21/2016 12 :08am Glucose Level 146 MG/DL H 65-110 10/20/2016 11:56pm 10/21/2016 12:08am Calculated Osmolality 272 MOSM/KG 261-280 10/20/2016 11:56pm 2016 12:08am Calcium Level 9.6 MG/DL 8.4-10.2 10/20/2016 11:56pm 10/21/2016 12:08am Total Bilirubin 0.40 MG/DL 0.20-1.30 10/20/2016 11:56pm 10/21/2016 12: 08am Alkaline Phosphatase 109 U/L 38-126 10/20/2016 11:56pm 10/21/2016 12: 08am Total Protein 7.0 G/DL 6.3-8.2 10/20/2016 11:56pm 10/21/2016 12:08am Albumin 4.1 G/DL 3.5-5.0 10/20/2016 11:5610/21/2016 12:08am Globulin 2.9 G/DL 2.4-3.6 10/20/2016 11:5610/21/2016 12:08am Albumin/Globulin Ratio 1.4 RATIO 1.1-2.2 10/20/2016 11:56pm 10/21/2016 12:08am Aspartate Amino Transf (AST/SGOT) 16 U/L 14-36 10/20/2016 11:56pm 10/21 12:08am Alanine Aminotransferase (ALT/SGPT) 31 U/L 9-52 10/20/2016 11:56pm 12:08am Lipase 60 U/L 23-300 10/20/2016 11:56pm 10/21/2016 12:08am Urine Collection Type CLEANCATCH-MIDSTREAM 10/21/2016 12:01am 10/21 12:36am Urine Color YELLOW YELLOW 10/21/2016 12:01am 10/21/2016 12:36am Urine Turbidity CLEAR CLEAR 10/21/2016 12:0110/21/2016 12:36am Urine Specific [place] 1.025 1.015-1.025 10/21/2016 12:012016 12:36am Urine pH 6.0 5.0-8.0 10/21/2016 12:0110/21/2016 12:36am Urine Leukocyte Esterase NEGATIVE NEGATIVE 10/21/2016 12:012016 12:36am Urine Nitrite NEGATIVE NEGATIVE 10/21/2016 12:0110/21/2016 12: 36am Urine Protein NEGATIVE NEGATIVE 10/21/2016 12:0110/21/2016 12: 36am Urine Glucose (UA) NEGATIVE NEGATIVE 10/21/2016 12:0110/21/2016 12 :36am Urine Ketones NEGATIVE NEGATIVE 10/21/2016 12:01am 10/21/2016 12: 36am Urine Urobilinogen 0.2 EU/DL NORMAL 10/21/2016 12:01am 10/21/2016 12: 36am Urine Bilirubin NEGATIVE NEGATIVE 10/21/2016 12:0110/21/2016 12: 36am Urine Blood 2+ A NEGATIVE 10/21/2016 12:0110/21/2016 12:36am Urine WBC 1-3 /HPF 0-5 10/21/2016 12:01am 10/21/2016 12:44am Urine RBC 1-3 /HPF 0-3 10/21/2016 12:01am 10/21/2016 12:44am Urine Squamous Epithelial Cells 5-10 10/21/2016 12:01am 10/21/2016 12:44am Urine Bacteria TRACE H NEGATIVE 10/21/2016 12:01am 10/21/2016 12:44am Urine Culture Indicated CULT NOT INDICATED 10/21/2016 12:0110/21 12:44am Procedures Procedure Status Date Provider(s) Hydrate iv infusion add-on Completed 08/21/16 Ther/proph/diag inj iv push Completed 08/21/16 Tx/pro/dx inj new drug addon Completed 08/21/16 Encounters Encounter Location Arrival/Admit Date Discharge/Depart Date Attending Provider Departed Emergency Room [facility] 10/20/16 11:16pm 10/21/16 1: 13am DULCE WALDEN DO Departed Emergency Room [facility] 10/06/16 3:55pm 10/06/16 5: 31pm CRICKET BOLAND MD Departed Emergency Room [facility] 08/21/16 11:48pm 08/22/16 1: 32am DULCE WALDEN DO Recent Diagnosis
--- OUTSIDE RECORDS SUMMARY | 2017-02-09 01:21 | XMS REPORT | Continuity of Care Document ---
Author Author [facility] Organization [facility] Address Unknown Phone Unavailable Support Name Relationship Address Phone BURT BERRY APRN Caregiver [address] [place] [address] OBEY BRANCH MD Caregiver [address] [place] [address] [place] [phone] KYLE GRIGSBY Next Of Kin [address] [place] [address] CP Insurance Providers Payer Name Policy Number [...] Active Bronchitis Unknown Active Bronchitis Unknown Active Medications Medication Dose Route Sig Days/Qty Instructions Order Date Discontinued Date Status Miscellaneous Information 05/06/12 01/23/13 Discontinued Albuterol Sulfate IH NEEDED 06/06/14 Active Fluticasone/Salmeterol 1 Puff ORAL INH DAILY 09/14/14 Active Ciprofloxacin HCl 500 Mg PO TWICE A DAY 20 Qty 09/14/14 Active Benzonatate 100 Mg PO THREE TIMES A DAY PRN COUGH 30 Qty 09/14/14 Active Social History Social History Problem Response Recorded Date/Time Hx Substance Use No 09/14/2014 1:23pm Hx Alcohol Use No 09/14/2014 1:23pm Tobacco Usage smoke 12/05/2013 3:27am Query Response Start Date Stop Date Smoking Status Unknown if ever smoked Hospital Discharge Instructions No hospital discharge instructions. Plan of Care No plan of care. Functional Status Query Response Date Recorded Physical Hygiene Self September 14, 2014 1:23pm Disabilities None September 14, 2014 1:23pm Devices Used None September 14, 2014 1:23pm Dressing Self September 14, 2014 1:23pm Ambulation Self September 14, 2014 1:23pm Diet Self September 14, 2014 1:23pm Mental Status Alert Oriented September 14, 2014 1:23pm Disabilities None September 14, 2014 1:23pm Devices Used None September 14, 2014 1:23pm Physical Hygiene Self September 14, 2014 1:23pm Dressing Self September 14, 2014 1:23pm Ambulation Self September 14, 2014 1:23pm Diet Self September 14, 2014 1:23pm Allergies, Adverse Reactions, Alerts Allergen Type Severity Reaction Status Last Updated Penicillin Allergy Unknown Active 09/14/14 Aspirin Allergy Severe HIVES AND "THROAT LOCKS UP" Active 09/14/14 FLU Allergy Unknown Active 09/14/14 Immunizations Name Given Type Hx Influenza Vaccination N ALLERGIC Historical Hx Tetanus, Diptheria, Pertussis N/A SKIN INTACT Historical Hx Influenza Vaccination N ALLERGIC Historical Hx Tetanus, Diptheria, Pertussis N/A SKIN INTACT Historical Vital Signs Acute Vital Signs Vital Response Date/Time Temperature (Fahrenheit) 98.2 deg F (96.8 - 99.1) Temperature (Calculated Celsius) 36.68713 degrees C (36.0 - 37.3) Pulse Rate (adult) 96 bpm (60 - 100) Respiratory Rate 18 breaths/min (10 - 20) O2 Sat by Pulse Oximetry 99 % (90 - 100) Blood Pressure 109/70 mm Hg Height 4 ft 11 in Weight 111 lb Body Mass Index 22.0 kg/m^2 Results Test Source Date Result Interp. Ref. Range Comments Activated Partial Thromboplast Time May 06, 2012 6:30am 34.2 SEC N 24 -36 Alanine Aminotransferase (ALT/SGPT) September 14, 2014 2:09pm 33 U/L N 9- 52 Albumin September 14, 2014 2:09pm 4.6 G/DL N 3.5-5.0 Albumin/Globulin Ratio September 14, 2014 2:09pm 1.5 RATIO N 1.1-2.2 Alkaline Phosphatase September 14, 2014 2:09pm 109 U/L N 38-126 Anion Gap September 14, 2014 2:09pm 7 MEQ/L N 5-15 Aspartate Amino Transf (AST/SGOT) September 14, 2014 2:09pm 16 U/L N 14- 36 BUN/Creatinine Ratio September 14, 2014 2:09pm 20 RATIO N 6-26 Basophils # (Auto) September 14, 2014 2:09pm 0.0 T/MM3 N 0-0.2 Basophils (%) (Auto) September 14, 2014 2:09pm 0.2 % N 0-2 Blood Urea Nitrogen September 14, 2014 2:09pm 14.0 MG/DL N 7-17 Calcium Level September 14, 2014 2:09pm 9.7 MG/DL N 8.4-10.2 Calculated Osmolality September 14, 2014 2:09pm 269 MOSM/KG N 261-280 Carbon Dioxide Level September 14, 2014 2:09pm 27 MEQ/L N 22-30 Chloride Level September 14, 2014 2:09pm 106 MEQ/L N 98-107 Conjugated Bilirubin May 06, 2012 6:30am 0.00 MG/DL N 0.00-0.30 Creatinine September 14, 2014 2:09pm 0.7 MG/DL N 0.7-1.2 D-Dimer May 06, 2012 6:30am < 150 NG/ML 0-230 <224 NG/ML= PRESUMPTIVE NEGATIVE FOR PE OR DVT>224 NG/ML=ADDITIONAL EVALUATION FOR PE OR DVT RECOMMENDED Eosinophils # (Auto) September 14, 2014 2:09pm 0.2 T/MM3 N 0-0.5 Eosinophils (%) (Auto) September 14, 2014 2:09pm 1.6 % N 0-4 Globulin September 14, 2014 2:09pm 3.0 G/DL N 2.4-3.6 Glucose Level September 14, 2014 2:09pm 85 MG/DL N 65-110 Group A Streptococcus Screen September 14, 2014 1:42pm Negative - Strep culture confirmation to follow Hematocrit September 14, 2014 2:09pm 41.2 % N 36-46 Hemoglobin September 14, 2014 2:09pm 13.7 GM/DL N 12-16 Influenza Type A Antigen September 14, 2014 2:00pm Negative - Negative for Flu A protein antigen. Assay sensitivity is90%. Influenza Type B Antigen September 14, 2014 2:00pm Negative - Negative for Flu B protein antigen. Assay sensitivity is90%. Lymphocytes # (Auto) September 14, 2014 2:09pm 0.9 T/MM3 L 1-4.8 Lymphocytes (%) (Auto) September 14, 2014 2:09pm 9.9 % L 23-45 Mean Corpuscular Hemoglobin September 14, 2014 2:09pm 30.6 UUG N 26-34 Mean Corpuscular Hemoglobin Concent September 14, 2014 2:09pm 33.3 GM/DL N 31-37 Mean Corpuscular Volume September 14, 2014 2:09pm 92.2 UM3 N 80-100 Mean Platelet Volume September 14, 2014 2:09pm 8.9 UM3 L 9.4-12.4 Monocytes # (Auto) September 14, 2014 2:09pm 0.6 T/MM3 N 0-0.8 Monocytes (%) (Auto) September 14, 2014 2:09pm 6.2 % N 0-9.0 Neutrophils # (Auto) September 14, 2014 2:09pm 7.8 T/MM3 H 1.8-7.7 Neutrophils (%) (Auto) September 14, 2014 2:09pm 82.0 % H 33-66 Platelet Count September 14, 2014 2:09pm 304 T/MM3 N 130-400 Potassium Level September 14, 2014 2:09pm 4.0 MEQ/L N 3.6-5 Prothromb Time International Ratio May 06, 2012 6:30am 0.97 N 0.86- 1.10 THERAPUTIC RANGE=2.00-3.00 FOR ANTI-THROMBOSIS THERAPUTIC RANGE=2.50- 3.50 FOR IMPLANTED VALVE RDW Standard Deviation September 14, 2014 2:09pm 43.0 FL N 36.9-50.2 Red Blood Count September 14, 2014 2:09pm 4.47 M/MM3 N 4.00-5.20 Sodium Level September 14, 2014 2:09pm 140 MEQ/L N 134-144 Total Bilirubin September 14, 2014 2:09pm 0.70 MG/DL N 0.20-1.30 Total Protein September 14, 2014 2:09pm 7.6 G/DL N 6.3-8.2 Troponin I May 06, 2012 6:30am < 0.012 ng/ml 0-0.12 Unconjugated Bilirubin May 06, 2012 6:30am 0.10 MG/DL N 0.00-1.10 Urine Bacteria September 14, [...] Has specimen been collected/obtained? Y Urine Specific [place] September 14, 2014 3:00pm 1.010 L - [...] collected/ obtained? Y White Blood Count September 14, 2014 2:09pm 9.5 T/MM3 N 4.5-11.0 Chemistry Specimen Hemolysis September 14, 2014 2:09pm < 15 0-25 0-25 : No Hemolysis.26-70: [...] Report October 03, 2011 9:59pm REFERENCE LAB [id number] - Chlamydia trachomatis Amplified DNA October 01, 2011 9:06pm Ref lab rpt scanned - --- 10/03/11 214 ---CHLAMDNA previously reported as: SENT OUT Turbidity September 14, 2014 2:09pm < 20 0-20 Glomerular Filtration Rate Calc September 14, 2014 2:09pm 90 - Immature Granulocyte # (Auto) September 14, 2014 2:09pm 0.01 T/MM3 N 0.00 -0.03 Immature Granulocyte % (Auto) September 14, 2014 2:09pm 0.1 % N 0.0-0.5 Icterus Index September 14, 2014 2:09pm < 2 0-7 BG-Hdd-F-Type Natriuretic Peptide May 06, 2012 6:30am 36 [...] 2011 9:06pm Name: BRISEIDA WOODALL Unit #: [id number] : 1970 Sex: F Loc / Svc: ED DOS: 09/14/14 Signed Report #: [id number] DIAGNOSTIC IMAGING REPORT TYPE OF EXAM: CHEST, [...] Encounters Encounter Location Date/Time Departed Emergency Room [facility] 09/14/14 1:20pm Departed Emergency Room [facility] 07/03/14 1:27am Recent Diagnosis
[2017-02-09 01:33] VITALS: Ht 149.9 cm; Wt 58.8 kg
[2017-02-09] MEDS ORDERED: NORMAL SALINE 1,000 ML IV ONE (01:47)
--- OUTSIDE RECORDS SUMMARY | 2017-02-09 01:55 | XMS REPORT | Continuity of Care Document ---
Author Author [facility] Organization [facility] Address Unknown Phone Unavailable Support Name Relationship Address Phone BURT BERRY APRN Caregiver [address] [place] [address] CRICKET BOLAND MD Caregiver [facility] [place] [address] KYLE GRIGSBY Next Of Kin [address] [place] [address] CP Insurance Providers Payer Name [...] F (96.8 - 99.1) Temperature (Calculated Celsius) 35.23416 degrees C (36.0 - 37.3) Pulse Rate [...] Has specimen been collected/obtained? Y Urine Specific [place] October 01, 2011 9:20pm 1.015 - Has [...] Report October 03, 2011 9:59pm REFERENCE LAB [id number] - Chlamydia trachomatis Amplified DNA October 01, 2011 9:06pm Ref lab rpt scanned - --- [id number]/[id number] ---CHLAMDNA previously reported as: SENT OUT Glomerular Filtration Rate Calc May 06, 2012 6:30am 109 - Immature Granulocyte # (Auto) May 06, 2012 6:30am 0.03 T/MM3 N 0.00- 0.03 Immature Granulocyte % (Auto) May 06, 2012 6:30am 0.2 % N 0.0-0.5 TK-Kck-W-Type Natriuretic Peptide May 06, 2012 6:30am 36 [...] Encounters Encounter Location Date/Time Registered Emergency Room [facility] 06/06/14 11:25pm Recent Diagnosis
--- OUTSIDE RECORDS SUMMARY | 2017-02-09 01:55 | XMS REPORT | Continuity of Care Document ---
Author Author [facility] Organization [facility] Address Unknown Phone Unavailable Support Name Relationship Address Phone BURT BERRY APRN Caregiver [address] [place] [phone] OBEY BRANCH MD Caregiver [address] [place] [address] [place] [phone] KYLE GRIGSBY Next Of Kin Unknown [phone] CP Insurance Providers Payer Name Policy Number [...] F (96.8 - 99.1) Temperature (Calculated Celsius) 36.86369 degrees C (36.0 - 37.3) Pulse Rate [...] Report October 03, 2011 9:59pm REFERENCE LAB [id number] - Lymphocytes # (Auto) November 28, 2014 [...] 28, 2014 10:55pm 9.6 % H 0-9.0 LJ-Qur-Z-Type Natriuretic Peptide November 28, 2014 10:55pm 326 [...] Has specimen been collected/obtained? Y Urine Specific [place] November 28, 2014 11:51pm >=1.030 H - [...] 2014 2:00pm Name: BRISEIDA WOODALL Unit #: [id number] : 1970 Sex: F Loc / Svc: ED DOS: 11/28/14 Signed Report #: [id number] DIAGNOSTIC IMAGING REPORT TYPE OF EXAM: CHEST, [...] Encounters Encounter Location Date/Time Departed Emergency Room [facility] 11/28/14 10:09pm Departed Emergency Room [facility] 11/26/14 12:34am Departed Emergency Room [facility] 10/30/14 2:11am Departed Emergency Room [facility] 10/28/14 11:41pm Departed Emergency Room [facility] 10/04/14 2:05pm Departed Emergency Room [facility] 09/19/14 5:45pm Departed Emergency Room [facility] 09/14/14 1:20pm Recent Diagnosis
--- OUTSIDE RECORDS SUMMARY | 2017-02-09 01:55 | XMS REPORT | Continuity of Care Document ---
Author Author [facility] Organization [facility] Address Unknown Phone Unavailable Support Name Relationship Address Phone BURT BERRY APRN Caregiver [address] [place] [phone] CRICKET BOLAND MD Caregiver [facility] [place] [address] KYLE GRIGSBY Next Of Kin Unknown [phone] CP Insurance Providers Payer Name Policy Number [...] F (96.8 - 99.1) Temperature (Calculated Celsius) 36.04171 degrees C (36.0 - 37.3) Pulse Rate [...] Report October 03, 2011 9:59pm REFERENCE LAB [id number] - Lymphocytes # (Auto) October 30, 2014 [...] 30, 2014 2:00am 9.4 % H 0-9.0 WP-Hyp-O-Type Natriuretic Peptide October 30, 2014 2:00am 88 [...] Has specimen been collected/obtained? Y Urine Specific [place] September 14, 2014 3:00pm 1.010 L - [...] 2014 2:00pm Name: BRISEIDA WOODALL Unit #: [id number] : 1970 Sex: F Loc / Svc: ED DOS: 10/30/14 Signed Report #: [id number] DIAGNOSTIC IMAGING REPORT TYPE OF EXAM: CHEST, [...] Encounters Encounter Location Date/Time Departed Emergency Room [facility] 11/26/14 12:34am Departed Emergency Room [facility] 10/30/14 2:11am Departed Emergency Room [facility] 10/28/14 11:41pm Departed Emergency Room [facility] 10/04/14 2:05pm Departed Emergency Room [facility] 09/19/14 5:45pm Departed Emergency Room [facility] 09/14/14 1:20pm Recent Diagnosis
--- OUTSIDE RECORDS SUMMARY | 2017-02-09 01:55 | XMS REPORT | Continuity of Care Document ---
Author Author [facility] Organization [facility] Address Unknown Phone Unavailable Support Name Relationship Address Phone RENNY INMAN DO Caregiver [facility] [address] [place], [place] [id number] BURT BERRY [employer] Caregiver [address] [place] [address] KYLE GRIGSBY Next Of Kin Unknown [phone] CP Insurance Providers Payer Name Policy Number [...] F (96.8 - 99.1) Temperature (Calculated Celsius) 36.14295 degrees C (36.0 - 37.3) Pulse Rate [...] Has specimen been collected/obtained? Y Urine Specific [place] September 14, 2014 3:00pm 1.010 L - [...] Report October 03, 2011 9:59pm REFERENCE LAB [id number] - Chlamydia trachomatis Amplified DNA October 01, [...] September 19, 2014 5:32pm < 2 0-7 FT-Nma-K-Type Natriuretic Peptide May 06, 2012 6:30am 36 [...] 2014 2:00pm Name: BRISEIDA WOODALL Unit #: [id number] : 1970 Sex: F Loc / Svc: ED DOS: Signed Report #: [id number] DIAGNOSTIC IMAGING REPORT TYPE OF EXAM: SHOULDER [...] Encounters Encounter Location Date/Time Departed Emergency Room [facility] 10/04/14 2:05pm Departed Emergency Room [facility] 09/19/14 5:45pm Departed Emergency Room [facility] 09/14/14 1:20pm Recent Diagnosis
--- OUTSIDE RECORDS SUMMARY | 2017-02-09 01:56 | XMS REPORT | Continuity of Care Document ---
Author Author [facility] Organization [facility] Address Unknown Phone Unavailable Support Name Relationship Address Phone JENNIFER OCHOA MD Caregiver [address] [place] [address] [place] [address] BURT BERRY APRN Caregiver [address] [place] [phone] CALISTAKYLE CHAVIRA Next Of Kin Unknown [phone] CP Insurance Providers Payer Name Policy Number [...] F (96.8 - 99.1) Temperature (Calculated Celsius) 36.67581 degrees C (36.0 - 37.3) Pulse Rate [...] 28, 2014 10:55pm 9.6 % H 0-9.0 KK-Kun-D-Type Natriuretic Peptide November 28, 2014 10:55pm 326 [...] Has specimen been collected/obtained? Y Urine Specific [place] December 17, 2014 2:35am <=1.005 L - [...] 2014 2:00pm Name: BRISEIDA WOODALL Unit #: [id number] : 1970 Sex: F Loc / Svc: ED DOS: 11/28/14 Signed Report #: [id number] DIAGNOSTIC IMAGING REPORT TYPE OF EXAM: CHEST, [...] Encounters Encounter Location Date/Time Departed Emergency Room [facility] 12/17/14 2:35am Departed Emergency Room [facility] 11/28/14 10:09pm Departed Emergency Room [facility] 11/26/14 12:34am Departed Emergency Room [facility] 10/30/14 2:11am Departed Emergency Room [facility] 10/28/14 11:41pm Departed Emergency Room [facility] 10/04/14 2:05pm Departed Emergency Room [facility] 09/19/14 5:45pm Recent Diagnosis
--- OUTSIDE RECORDS SUMMARY | 2017-02-09 01:56 | XMS REPORT | Continuity of Care Document ---
Author Author [facility] Organization [facility] Address Unknown Phone Unavailable Support Name Relationship Address Phone JENNIFER OCHOA MD Caregiver [address] [place] [address] [place] [address] BURT BERRY APRN Caregiver [address] [place] [address] CALISTAKYLE CHAVIRA Next Of Kin Unknown [phone] CP Insurance Providers Payer Name Policy Number [...] F (96.8 - 99.1) Temperature (Calculated Celsius) 36.01059 degrees C (36.0 - 37.3) Pulse Rate [...] Has specimen been collected/obtained? Y Urine Specific [place] September 14, 2014 3:00pm 1.010 L - [...] Report October 03, 2011 9:59pm REFERENCE LAB [id number] - Chlamydia trachomatis Amplified DNA October 01, [...] September 19, 2014 5:32pm < 2 0-7 MG-Jaa-K-Type Natriuretic Peptide May 06, 2012 6:30am 36 [...] 2014 2:00pm Name: BRISEIDA WOODALL Unit #: [id number] : 1970 Sex: F Loc / Svc: ED DOS: Signed Report #: [id number] DIAGNOSTIC IMAGING REPORT TYPE OF EXAM: SHOULDER [...] Encounters Encounter Location Date/Time Registered Emergency Room [facility] 10/28/14 11:41pm Departed Emergency Room [facility] 10/04/14 2:05pm Departed Emergency Room [facility] 09/19/14 5:45pm Departed Emergency Room [facility] 09/14/14 1:20pm Recent Diagnosis
--- OUTSIDE RECORDS SUMMARY | 2017-02-09 01:56 | XMS REPORT | Continuity of Care Document ---
Author Author [facility] Organization [facility] Address Unknown Phone Unavailable Support Name Relationship Address Phone SHELLEY ROCK MD Caregiver [facility] [address] [place] [address] Unavailable BURT BERRY APRN Caregiver [address] [place] [address] CALISTA KYLE Next Of Kin Unknown [phone] CP Insurance Providers Payer Name Policy Number [...] F (96.8 - 99.1) Temperature (Calculated Celsius) 37.68126 degrees C (36.0 - 37.3) Pulse Rate [...] Has specimen been collected/obtained? Y Urine Specific [place] September 14, 2014 3:00pm 1.010 L - [...] Report October 03, 2011 9:59pm REFERENCE LAB [id number] - Chlamydia trachomatis Amplified DNA October 01, [...] September 19, 2014 5:32pm < 2 0-7 SI-Vrw-U-Type Natriuretic Peptide May 06, 2012 6:30am 36 [...] 2014 2:00pm Name: BRISEIDA WOODALL Unit #: [id number] : 1970 Sex: F Loc / Svc: ED DOS: 09/14/14 Signed Report #: [id number] DIAGNOSTIC IMAGING REPORT TYPE OF EXAM: CHEST, [...] Encounters Encounter Location Date/Time Departed Emergency Room [facility] 09/19/14 5:45pm Departed Emergency Room [facility] 09/14/14 1:20pm Departed Emergency Room [facility] 07/03/14 1:27am Recent Diagnosis
--- OUTSIDE RECORDS SUMMARY | 2017-02-09 01:56 | XMS REPORT | Continuity of Care Document ---
Author Author [facility] Organization [facility] Address Unknown Phone Unavailable Support Name Relationship Address Phone BURT BERRY APRN Caregiver [address] [phone] OBEY BRANCH MD Caregiver [address] [place] [address] [place] [phone] CALISTA KYLE Next Of Kin [address] [place] [address] CP Insurance Providers Payer Name Policy Number [...] F (96.8 - 99.1) Temperature (Calculated Celsius) 36.71830 degrees C (36.0 - 37.3) Pulse Rate [...] Has specimen been collected/obtained? Y Urine Specific [place] October 01, 2011 9:20pm 1.015 - Has [...] Report October 03, 2011 9:59pm REFERENCE LAB [id number] - Chlamydia trachomatis Amplified DNA October 01, 2011 9:06pm Ref lab rpt scanned - --- 10/03/112141 ---CHLAMDNA previously reported as: SENT OUT Glomerular Filtration Rate Calc May 06, 2012 6:30am 109 - Immature Granulocyte # (Auto) May 06, 2012 6:30am 0.03 T/MM3 N 0.00- 0.03 Immature Granulocyte % (Auto) May 06, 2012 6:30am 0.2 % N 0.0-0.5 CG-Mgr-Z-Type Natriuretic Peptide May 06, 2012 6:30am 36 [...] Encounters Encounter Location Date/Time Departed Emergency Room [facility] 03/07/14 12:33pm Recent Diagnosis
--- OUTSIDE RECORDS SUMMARY | 2017-02-09 01:56 | XMS REPORT | Continuity of Care Document ---
Author Author [facility] Organization [facility] Address Unknown Phone Unavailable Support Name Relationship Address Phone SHELLEY ROCK MD Caregiver [facility] [address] [place] [address] Unavailable BURT BERRY APRN Caregiver [address] [place] [address] KYLE GRIGSBY Next Of Kin [address] [place] [address] CP Insurance Providers Payer Name Policy Number [...] F (96.8 - 99.1) Temperature (Calculated Celsius) 35.40403 degrees C (36.0 - 37.3) Pulse Rate [...] Has specimen been collected/obtained? Y Urine Specific [place] October 01, 2011 9:20pm 1.015 - Has [...] Report October 03, 2011 9:59pm REFERENCE LAB [id number] - Chlamydia trachomatis Amplified DNA October 01, 2011 9:06pm Ref lab rpt scanned - --- 10/03/11 [id number] ---CHLAMDNA previously reported as: SENT OUT Glomerular Filtration Rate Calc May 06, 2012 6:30am 109 - Immature Granulocyte # (Auto) May 06, 2012 6:30am 0.03 T/MM3 N 0.00- 0.03 Immature Granulocyte % (Auto) May 06, 2012 6:30am 0.2 % N 0.0-0.5 WO-Eyg-M-Type Natriuretic Peptide May 06, 2012 6:30am 36 [...] 2011 9:06pm Name: BRISEIDA WOODALL Unit #: [id number] : 1970 Sex: F Loc / Svc: ED DOS: 06/06/14 Signed Report #: [id number] DIAGNOSTIC IMAGING REPORT TYPE OF EXAM: RADIUS/ULNA RIGHT 2 VIEW Dictated By: ENRIKE VINES MD INDICATION: ITS.REASON: fall, pain RADIUS/ULNA RIGHT 2 VIEW: Comparison: March 07, 2014 Findings: There is no acute fracture, dislocation or malalignment identified. Impression: No acute osseous abnormality. . Procedures No known history of procedures. Encounters Encounter Location Date/Time Departed Emergency Room [facility] 07/03/14 1:27am Departed Emergency Room [facility] 06/06/14 11:25pm Recent Diagnosis
--- OUTSIDE RECORDS SUMMARY | 2017-02-09 01:56 | XMS REPORT | Continuity of Care Document ---
Author Author [facility] Organization [facility] Address Unknown Phone Unavailable Support Name Relationship Address Phone BURT BERRY APRN Caregiver [address] [place] [address] OBEY BRANCH MD Caregiver [address] [place] [address] [place] [phone] KYLE GRIGSBY Next Of Kin [address] [place] [address] CP Insurance Providers Payer Name Policy Number [...] F (96.8 - 99.1) Temperature (Calculated Celsius) 36.88873 degrees C (36.0 - 37.3) Pulse Rate [...] Has specimen been collected/obtained? Y Urine Specific [place] September 14, 2014 3:00pm 1.010 L - [...] Report October 03, 2011 9:59pm REFERENCE LAB [id number] - Chlamydia trachomatis Amplified DNA October 01, [...] September 14, 2014 2:09pm < 2 0-7 RC-Opr-O-Type Natriuretic Peptide May 06, 2012 6:30am 36 [...] 2011 9:06pm Name: BRISEIDA WOODALL Unit #: [id number] : 1970 Sex: F Loc / Svc: ED DOS: 09/14/14 Signed Report #: [id number] DIAGNOSTIC IMAGING REPORT TYPE OF EXAM: CHEST, [...] Encounters Encounter Location Date/Time Departed Emergency Room [facility] 09/14/14 1:20pm Departed Emergency Room [facility] 07/03/14 1:27am Recent Diagnosis
[2017-02-09] MEDS ORDERED: ONDANSETRON 4mg/2ml INJECTION IV ONE (02:00)
[2017-02-09] MEDS ORDERED: KETOROLAC 30mg/ml INJECTION IV ONE (02:00)
[2017-02-09 02:08] LABS: BLOOD, URINE 2+ (NEGATIVE); COLOR,URINE YELLOW (YELLOW); LEUKOCYTE ESTERASE ,URINE NEGATIVE (NEGATIVE); NITRITE,URINE NEGATIVE (NEGATIVE); UROBILINOGEN,URINE 0.2 EU/DL (NORMAL)
[2017-02-09 02:10] LABS: BASOPHILS # (AUTO) 0.1 T/MM3 (0-0.2); BASOPHILS % (AUTO) 0.4 % (0-2); EOSINOPHILS # (AUTO) 0.2 T/MM3 (0-0.5); EOSINOPHILS % (AUTO) 2.1 % (0-4); HCT - HEMATOCRIT 39.1 % (36-46); IMMATURE GRANULOCYTE # (AUTO) 0.02 T/MM3 (0.00-0.03); IMMATURE GRANULOCYTE % (AUTO) 0.2 % (0.0-0.5); LYMPHOCYTES # (AUTO) 3.8 T/MM3 (1-4.8); LYMPHOCYTES % (AUTO) 33.1 % (23-45); MEAN CORPUSCULAR HGB 30.2 UUG (26-34); MEAN CORPUSCULAR HGB CONC(MCHC 33.2 GM/DL (31-37); MEAN CORPUSCULAR VOLUME 90.7 UM3 (80-100); MEAN PLATELET VOLUME 9.4 UM3 (9.4-12.4); MONOCYTES # (AUTO) 0.9 T/MM3 (0-0.8); MONOCYTES % (AUTO) 7.4 % (0-9.0); NEUTROPHILS #(AUTO)-ABSOLUTE 6.5 T/MM3 (1.8-7.7); NEUTROPHILS % (AUTO) 56.8 % (33-66); RED BLOOD COUNT 4.31 M/MM3 (4.00-5.20); WBC - WHITE BLOOD COUNT 11.4 T/MM3 (4.5-11.0)
[2017-02-09 02:14] LABS: BACTERIA,URINE NONE SEEN (NEGATIVE); MUCUS,URINE PRESENT; RBC,URINE 0-1 /HPF (0-3)
[2017-02-09 02:16] LABS: ANION GAP 11 MEQ/L (5-15); BUN/CREATININE RATIO 21 RATIO (6-26); CALCIUM 9.3 MG/DL (8.4-10.2); CHLORIDE 105 MEQ/L (98-107); CO2 - CARBON DIOXIDE 27 MEQ/L (22-30); CREATININE 0.7 MG/DL (0.7-1.2); GLOMERULAR FILTRATION RATE 90; GLUCOSE 95 MG/DL (65-110); POTASSIUM 3.8 MEQ/L (3.6-5); SODIUM 143 MEQ/L (134-144)
--- NOTE | 2017-02-09 02:21 | ERPDOC ---
Departure Disposition Decision Date: February 09, 2017 Disposition Decision Time: 03:14 Disposition: 01 DISCHARGED HOME, SELF-CARE Impression Impression Impression: Primary Impression: Ureterolithiasis Severity: Moderate Condition: Improved Seen By: Physician only Referrals: JANET RUIZ APRN (Family) 1 Week Patient Instructions: Kidney Stones (ED) Problems/Meds/Labs Reviewed?: Yes Medications reviewed and manag: Yes Additional Instructions: You have a kidney stone. Drink lots of water, use naproxen or ibuprofen to help with your pain. Only take the norco if the naproxen does not improve your pain. Follow up with your doctor in the next week to ensure that you have passed the stone. Follow up care ordered?: Yes Mental Status: Alert, Oriented Scripts Ondansetron (Zofran Odt) 4 Mg Tab.rapdis 4 MG PO QID Y for NAUSEA &/OR VOMITING, #20 TAB 0 Refills Prov: JANUARY,DULCE M DO 02/09/17 Hydrocodone/Acetaminophen (Torreon 5-325 Tablet) 5-325 Tablet 1 TAB PO Q6HR Y for PAIN, #20 TAB 0 Refills Prov: M DO 02/09/17 HPI - Female General Chief Complaint: Flank Pain Stated Complaint: LEFT KIDNEY PAIN Time Seen by Provider: 01:47 Source: patient Exam Limitations: no limitations HPI - Female Initial Comments 46yo woman presents with left-sided flank pain. Pain has been present x2 weeks. Pt thinks she is passing numerous kidney stones. Has been taking naproxen without significant relief. Has tried numerous home remedies without relief. Occurred At: home Onset: Constant, Getting worse Duration: other Pain Scale: Now & Worst: 6/10 Severity/Quality: cramping, sharpness Location: left flank Radiation: none Activities at Onset: none Prior Genitourinary Problems: similar symptoms Modifying Factors: IMPROVES WITH: analgesics, urinating, WORSE WITH: movement, palpation Associated Symptoms: nausea/vomiting, urinary frequency Hx of Similar Symptoms: Yes Is Pt now?: No Allergies: Coded Allergies: aspirin (Verified Allergy, Severe, HIVES AND "THROAT LOCKS UP", 02/09/17) Latex, Natural Rubber (Verified Allergy, Mild, MILD IRRITATON PER PT, 02/09) Penicillins (Verified Allergy, Unknown, 02/09/17) promethazine (Verified Allergy, Unknown, 02/09/17) tamsulosin (Verified Adverse Reaction, Unknown, vomiting, 02/09/17) Uncoded Allergies: FLU (Allergy, Unknown, 09/14/14) Past History Past Medical History Hx Echocardiogram: No Respiratory: asthma GI: GERD Female: kidney stones Psychological: anxiety Surgical History General: appendix Reproductive/: hysterectomy Joint: knee Family History Family PMH: FOUND: ID, diabetes, hypercholesterolemia, hypertension Vaccines Hx Influenza Vaccination: No (REPORTS IT MAKES HER SICK) Hx Pneumococcal Vaccination: No Hx Tetanus, Diptheria, Pertuss: No Social History # of Packs/Tins per Day: .5 Sexuality: male partner Review of Systems GI Upper Abdomen: nausea General: frequency All other Systems All Other Systems: Reviewed and Negative Physical Exam General General Nourishment: well nourished, well developed, appears stated age, no acute distress, adult General Body Habitus: well groomed Vitals and Pain First Documented Vital Signs Date Time Temp Pulse Resp B/P Pulse Ox O2 Delivery O2 Flow Rate FiO2 02/09/17 01:33 98.3 98 20 119/78 96 Room Air Weight: Kilograms: 58.800 Height (feet): 4 Height (inches): 11.00 Triage Pain Scale: RN VS reviewed by Provider: Yes Normal Exams: Head: Normocephalic w/o trauma Eyes: Pupils are PERRLA w/ EOMI, No scleral icterus, irritation ENMT: No facial trauma, nasal exudates, pharyngeal erythema Neck: Full range of motion, without adenopathy, JVD Lymphatic: No lymphadenopathy Musculoskeletal: No tenderness, or deformity noted Integumentary: No rashes, hives, or bruising noted Neurologic: Patient is alert, and oriented Psychiatric: Patient exhibits, appropriate attention Respiratory (brief) Respiratory: FOUND: clear all jimenez, equal bilaterally, symmetrical, NOT FOUND : rales, wheezes Cardiovascular (brief) Cardiac: FOUND: regular rate, regular rhythm, NOT FOUND: click, gallop, murmur , pedal edema, peripheral edema, rub Capillary Refill: <2 sec Pulses: all distal extremities, equal, strong Abdomen (brief) Abdominal Brief: FOUND: bowel normo active x4, soft, NOT FOUND: distended, hepatosplenomegaly, pulsatile mass, tender Differential Diagnoses Considering: Pyelonephritis, Renal Colic, UTI, Other (Kidney stone) Progress Results/Orders Orders Procedure Category Date Status Time Cbc W/Auto LAB 02/09/17 Complete Diff-Reflex Manual 01:47 Bmp - Basic Metabolic LAB 02/09/17 Complete Panel 01:47 Iv Lock (Ed Only) EDM 02/09/17 Transmitted 01:47 Normal Saline (Normal PHA 02/09/17 Complete Saline Iv) 01:47 Ketorolac (Toradol) PHA 02/09/17 Complete 02:00 Ondansetron Inj PHA 02/09/17 Complete (Zofran) 02:00 UA, LAB 02/09/17 Complete Dip&Micro(Complete) & 01:55 Ct Renal W/O Contrast CT 02/09/17 Logged 02:12 Lab Results Laboratory Tests Test 02/09/17 01:55 02/09/17 02:00 Urine Collection Type Cleancatch-midstream Urine Color Yellow Urine Turbidity Clear Urine pH 5.5 Urine Specific [place] 1.010 Urine Protein Negative Urine Glucose (UA) Negative Urine Ketones Negative Urine Blood 2+ Urine Nitrite Negative Urine Bilirubin Negative Urine Urobilinogen 0.2EU/DL Urine Leukocyte Esterase Negative Urine RBC 0-1/HPF Urine WBC 3-5/HPF Urine Bacteria None seen Urine Mucus Present Urine Culture Indicated Cult not indicated White Blood Count 11.4T/MM3 Red Blood Count 4.31M/MM3 Hemoglobin 13.0GM/DL Hematocrit 39.1% Mean Corpuscular Volume 90.7UM3 Mean Corpuscular Hemoglobin 30.2UUG Mean Corpuscular Hemoglobin Concent 33.2GM/DL RDW Standard Deviation 43.8FL Platelet Count 355T/MM3 Mean Platelet Volume 9.4UM3 Immature Granulocyte % (Auto) 0.2% Neutrophils (%) (Auto) 56.8% Lymphocytes (%) (Auto) 33.1% Monocytes (%) (Auto) 7.4% Eosinophils (%) (Auto) 2.1% Basophils (%) (Auto) 0.4% Absolute Immature Granulocyte (auto 0.02T/MM3 Absolute Neutrophils (auto) 6.5T/MM3 Absolute Lymphocytes (auto) 3.8T/MM3 Absolute Monocytes (auto) 0.9T/MM3 Absolute Eosinophils (auto) 0.2T/MM3 Absolute Basophils (auto) 0.1T/MM3 Turbidity < 20 Sodium Level 143MEQ/L Potassium Level 3.8MEQ/L Chloride Level 105MEQ/L Carbon Dioxide Level 27MEQ/L Anion Gap 11MEQ/L Blood Urea Nitrogen 15.0MG/DL Creatinine 0.7MG/DL Glomerular Filtration Rate Calc 90 BUN/Creatinine Ratio 21RATIO Glucose Level 95MG/DL Calculated Osmolality 276MOSM/KG Calcium Level 9.3MG/DL Icterus Index < 2 Chemistry Specimen Hemolysis < 15 Medications Current ED Medications Sodium Chloride (Normal Saline IV) 1,000 ml @ 0 mls/hr Q0M ONCE IV Last administered on 02/09/17 02:10; Start 02/09/17 at 01:47; Stop 02/09/17 at 01:48 ; Status DC Ketorolac Tromethamine (Toradol) 30 mg O ONCE IV Last administered on 02:00; Start 02/09/17 at 02:00; Stop 02/09/17 at 02:01; Status DC Ondansetron HCl (Zofran) 4 mg O ONCE IV Last administered on 02/09/17 02:11; Start 02/09/17 at 02:00; Stop 02/09/17 at 02:01; Status DC Progress Progress Despite vRad that pt has no renal stones, pt has hematuria, flank pain, and radiopaque stones along the expected course of the ureters. No evidence of hydronephrosis or hydroureter. Will presumptively dx with ureterolithiasis. Pt voiced understanding of dx, prognosis, tx, and f/u need. CT CT : CT: Renal no contrast Interpretation: Normal, Reviewed Written Report DULCE WALDEN DO February 09, 2017 02:21
[2017-02-09] MEDS ORDERED: ONDA4TAB7 PO (03:16)
[2017-02-09] MEDS ORDERED: HYDR-4246 PO (03:16)
[2017-02-09] MEDS ORDERED: HYDROCODONE/APAP 5 mg/325 mg TABLET PO ONE (03:30)
[2017-02-09 03:42] VITALS: BP 119/78; PULSE 98; RESP 20; TEMP 98.3; O2SAT 96
--- NOTE | 2017-02-09 03:42 | NUR ---
DEPART PT GIVEN DI FOR KIDNEY STONES, NORCO, ZOFRAN, F/U. RX PROVIDED FOR NORCO AND ZOFRAN. VERBALIZES UNDERSTANDING OF DI, MEDS, AND F/U. QUESTIONS ASKED/ANSWERED - DENIES FURTHER QUESTIONS/NEEDS AT THIS TIME. IV SITE REMOVED. PERSONAL BELONGINGS GATHERED. PT ESCORTED/AMBULATED TO ED EXIT - GAIT STABLE, NO SIGN OF DISTRESS AT THIS TIME.
--- NOTE | 2017-02-10 11:53 | DI ---
Indication: ITS.REASON: left flank pain PROCEDURE: CT RENAL W/O CONTRAST: Encounter: Initial Comparison: CT abdomen/pelvis dated April 26, 2016 Technique: Axial CT images were performed through the abdomen and pelvis without intravenous contrast. Coronal and sagittal two-dimensional reformats. Automated Exposure Control and Iterative Reconstruction dose reducing techniques were utilized. Findings: New right lower lobe pulmonary nodules, the largest on axial image #9 measures 1.2 cm in diameter. Stable small cyst in the lateral left hepatic lobe. Unenhanced contours of the liver are otherwise unremarkable. The gallbladder is within normal limits. The spleen, pancreas and adrenal glands are within normal limits. The kidneys appear normal. No abdominal or pelvic lymphadenopathy. Bladder is normal. Uterus is absent. No free fluid. No evidence of a bowel obstruction. Bone windows show no acute findings. Impression: 1. No acute disease process seen in the abdomen or pelvis. 2. New right lower lobe pulmonary nodules could be infectious, inflammatory or neoplastic. Recommend a dedicated CT of the chest for further evaluation. There is a preliminary report by [facility]. .
== END 2017-02-09 03:42 | disposition home or self-care (01) ==
LOC: ED 01:15
DX: N20.1 Calculus of ureter (principal); Z87.442 Personal history of urinary calculi
CPT/HCPCS: 80048; 81001; 85025

== ENCOUNTER 2017-02-15 03:07 | Emergency (ER) | payer SELFPAY ==
[~2017-02-15] VITALS: Ht 149.9 cm; Wt 55.0 kg
[~2017-02-15 03:07] MED LIST changes: +ONDA4TAB7 PO
[2017-02-15 03:10] VITALS: Ht 149.9 cm; Wt 55.0 kg
--- OUTSIDE RECORDS SUMMARY | 2017-02-15 03:11 | XMS REPORT | Continuity of Care Document ---
Author Author [facility] Organization [facility] Address Unknown Phone Unavailable Support Name Relationship Address Phone BURT BERRY APRN Caregiver [address] [place] [address] CRICKET BOLAND MD Caregiver [facility] [place] [address] KYLE GRIGSBY Next Of Kin [address] [place] [address] CP Insurance Providers Payer Name [...] F (96.8 - 99.1) Temperature (Calculated Celsius) 35.96876 degrees C (36.0 - 37.3) Pulse Rate [...] Has specimen been collected/obtained? Y Urine Specific [place] October 01, 2011 9:20pm 1.015 - Has [...] Report October 03, 2011 9:59pm REFERENCE LAB [id number] - Chlamydia trachomatis Amplified DNA October 01, 2011 9:06pm Ref lab rpt scanned - --- 10/03/112141 ---CHLAMDNA previously reported as: SENT OUT Glomerular Filtration Rate Calc May 06, 2012 6:30am 109 - Immature Granulocyte # (Auto) May 06, 2012 6:30am 0.03 T/MM3 N 0.00- 0.03 Immature Granulocyte % (Auto) May 06, 2012 6:30am 0.2 % N 0.0-0.5 JV-Tdi-L-Type Natriuretic Peptide May 06, 2012 6:30am 36 [...] Encounters Encounter Location Date/Time Registered Emergency Room [facility] 06/06/14 11:25pm Recent Diagnosis
--- OUTSIDE RECORDS SUMMARY | 2017-02-15 03:11 | XMS REPORT | Continuity of Care Document ---
Author Author [facility] Organization [facility] Address Unknown Phone Unavailable Support Name Relationship Address Phone SHELLEY ROCK MD Caregiver [facility] [address] [place] [address] Unavailable BURT BERRY APRN Caregiver [address] [place] [address] KYLE GRIGSBY Next Of Kin [address] [place] [address] CP Insurance Providers Payer Name Policy Number [...] F (96.8 - 99.1) Temperature (Calculated Celsius) 35.02244 degrees C (36.0 - 37.3) Pulse Rate [...] Has specimen been collected/obtained? Y Urine Specific [place] October 01, 2011 9:20pm 1.015 - Has [...] Report October 03, 2011 9:59pm REFERENCE LAB [id number] - Chlamydia trachomatis Amplified DNA October 01, 2011 9:06pm Ref lab rpt scanned - --- 10/03/11 [id number] ---CHLAMDNA previously reported as: SENT OUT Glomerular Filtration Rate Calc May 06, 2012 6:30am 109 - Immature Granulocyte # (Auto) May 06, 2012 6:30am 0.03 T/MM3 N 0.00- 0.03 Immature Granulocyte % (Auto) May 06, 2012 6:30am 0.2 % N 0.0-0.5 GI-Dqc-B-Type Natriuretic Peptide May 06, 2012 6:30am 36 [...] 2011 9:06pm Name: BRISEIDA WOODALL Unit #: [id number] : 1970 Sex: F Loc / Svc: ED DOS: 06/06/14 Signed Report #: [id number] DIAGNOSTIC IMAGING REPORT TYPE OF EXAM: RADIUS/ULNA RIGHT 2 VIEW Dictated By: ENRIKE VINES MD INDICATION: ITS.REASON: fall, pain RADIUS/ULNA RIGHT 2 VIEW: Comparison: March 07, 2014 Findings: There is no acute fracture, dislocation or malalignment identified. Impression: No acute osseous abnormality. . Procedures No known history of procedures. Encounters Encounter Location Date/Time Departed Emergency Room [facility] 07/03/14 1:27am Departed Emergency Room [facility] 06/06/14 11:25pm Recent Diagnosis
--- OUTSIDE RECORDS SUMMARY | 2017-02-15 03:11 | XMS REPORT | Continuity of Care Document ---
Author Author [facility] Organization [facility] Address Unknown Phone Unavailable Support Name Relationship Address Phone BURT BERRY APRN Caregiver [address] [place] [phone] OBEY BRANCH MD Caregiver [address] [place] [address] [place] [phone] KYLE GRIGSBY Next Of Kin Unknown [phone] CP Insurance Providers Payer Name Policy Number [...] F (96.8 - 99.1) Temperature (Calculated Celsius) 36.19017 degrees C (36.0 - 37.3) Pulse Rate [...] Report October 03, 2011 9:59pm REFERENCE LAB [id number] - Lymphocytes # (Auto) November 28, 2014 [...] 28, 2014 10:55pm 9.6 % H 0-9.0 WZ-Coy-F-Type Natriuretic Peptide November 28, 2014 10:55pm 326 [...] Has specimen been collected/obtained? Y Urine Specific [place] November 28, 2014 11:51pm >=1.030 H - [...] 2014 2:00pm Name: BRISEIDA WOODALL Unit #: [id number] : 1970 Sex: F Loc / Svc: ED DOS: 11/28/14 Signed Report #: [id number] DIAGNOSTIC IMAGING REPORT TYPE OF EXAM: CHEST, [...] Encounters Encounter Location Date/Time Departed Emergency Room [facility] 11/28/14 10:09pm Departed Emergency Room [facility] 11/26/14 12:34am Departed Emergency Room [facility] 10/30/14 2:11am Departed Emergency Room [facility] 10/28/14 11:41pm Departed Emergency Room [facility] 10/04/14 2:05pm Departed Emergency Room [facility] 09/19/14 5:45pm Departed Emergency Room [facility] 09/14/14 1:20pm Recent Diagnosis
--- OUTSIDE RECORDS SUMMARY | 2017-02-15 03:11 | XMS REPORT | Continuity of Care Document ---
Author Author [facility] Organization [facility] Address Unknown Phone Unavailable Support Name Relationship Address Phone RENNY INMAN DO Caregiver [facility] [address] [place], [place] [id number] BURT BERRY [employer]ION[employer] UNDERWRITER Caregiver [address] [place] [address] KYLE GRIGSBY Next Of Kin Unknown [phone] CP Insurance Providers Payer Name Policy Number [...] F (96.8 - 99.1) Temperature (Calculated Celsius) 36.13312 degrees C (36.0 - 37.3) Pulse Rate [...] Has specimen been collected/obtained? Y Urine Specific [place] September 14, 2014 3:00pm 1.010 L - [...] Report October 03, 2011 9:59pm REFERENCE LAB [id number] - Chlamydia trachomatis Amplified DNA October 01, [...] September 19, 2014 5:32pm < 2 0-7 CG-Clh-L-Type Natriuretic Peptide May 06, 2012 6:30am 36 [...] 2014 2:00pm Name: BRISEIDA WOODALL Unit #: [id number] : 1970 Sex: F Loc / Svc: ED DOS: Signed Report #: [id number] DIAGNOSTIC IMAGING REPORT TYPE OF EXAM: SHOULDER [...] Encounters Encounter Location Date/Time Departed Emergency Room [facility] 10/04/14 2:05pm Departed Emergency Room [facility] 09/19/14 5:45pm Departed Emergency Room [facility] 09/14/14 1:20pm Recent Diagnosis
--- OUTSIDE RECORDS SUMMARY | 2017-02-15 03:11 | XMS REPORT | Continuity of Care Document ---
Author Author [facility] Organization [facility] Address Unknown Phone Unavailable Support Name Relationship Address Phone BURT BERRY APRN Caregiver [address] [place] [phone] CRICKET BOLAND MD Caregiver [facility] [place] [address] KYLE GRIGSBY Next Of Kin Unknown [phone] CP Insurance Providers Payer Name Policy Number [...] F (96.8 - 99.1) Temperature (Calculated Celsius) 36.64049 degrees C (36.0 - 37.3) Pulse Rate [...] Report October 03, 2011 9:59pm REFERENCE LAB [id number] - Lymphocytes # (Auto) October 30, 2014 [...] 30, 2014 2:00am 9.4 % H 0-9.0 BF-Dow-I-Type Natriuretic Peptide October 30, 2014 2:00am 88 [...] Has specimen been collected/obtained? Y Urine Specific [place] September 14, 2014 3:00pm 1.010 L - [...] 2014 2:00pm Name: BRISEIDA WOODALL Unit #: [id number] : 1970 Sex: F Loc / Svc: ED DOS: 10/30/14 Signed Report #: [id number] DIAGNOSTIC IMAGING REPORT TYPE OF EXAM: CHEST, [...] Encounters Encounter Location Date/Time Departed Emergency Room [facility] 11/26/14 12:34am Departed Emergency Room [facility] 10/30/14 2:11am Departed Emergency Room [facility] 10/28/14 11:41pm Departed Emergency Room [facility] 10/04/14 2:05pm Departed Emergency Room [facility] 09/19/14 5:45pm Departed Emergency Room [facility] 09/14/14 1:20pm Recent Diagnosis
--- OUTSIDE RECORDS SUMMARY | 2017-02-15 03:12 | XMS REPORT | Continuity of Care Document ---
Author Author [facility] Organization [facility] Address Unknown Phone Unavailable Support Name Relationship Address Phone BURT BERRY APRN Caregiver [address] [phone] OBEY BRANCH MD Caregiver [address] [place] [address] [place] [phone] CALISTA KYLE Next Of Kin [address] [place] [address] CP Insurance Providers Payer Name Policy Number [...] F (96.8 - 99.1) Temperature (Calculated Celsius) 36.77913 degrees C (36.0 - 37.3) Pulse Rate [...] Has specimen been collected/obtained? Y Urine Specific [place] October 01, 2011 9:20pm 1.015 - Has [...] Report October 03, 2011 9:59pm REFERENCE LAB [id number] - Chlamydia trachomatis Amplified DNA October 01, 2011 9:06pm Ref lab rpt scanned - --- 10/03/112141 ---CHLAMDNA previously reported as: SENT OUT Glomerular Filtration Rate Calc May 06, 2012 6:30am 109 - Immature Granulocyte # (Auto) May 06, 2012 6:30am 0.03 T/MM3 N 0.00- 0.03 Immature Granulocyte % (Auto) May 06, 2012 6:30am 0.2 % N 0.0-0.5 VX-Ays-X-Type Natriuretic Peptide May 06, 2012 6:30am 36 [...] Encounters Encounter Location Date/Time Departed Emergency Room [facility] 03/07/14 12:33pm Recent Diagnosis
--- OUTSIDE RECORDS SUMMARY | 2017-02-15 03:12 | XMS REPORT | Continuity of Care Document ---
Author Author [facility] Organization [facility] Address Unknown Phone Unavailable Support Name Relationship Address Phone BURT BERRY APRN Caregiver [address] [place] [address] OBEY BRANCH MD Caregiver [address] [place] [address] [place] [phone] KYLE GRIGSBY Next Of Kin [address] [place] [address] CP Insurance Providers Payer Name Policy Number [...] F (96.8 - 99.1) Temperature (Calculated Celsius) 36.06447 degrees C (36.0 - 37.3) Pulse Rate [...] Has specimen been collected/obtained? Y Urine Specific [place] September 14, 2014 3:00pm 1.010 L - [...] Report October 03, 2011 9:59pm REFERENCE LAB [id number] - Chlamydia trachomatis Amplified DNA October 01, [...] September 14, 2014 2:09pm < 2 0-7 UM-Drx-J-Type Natriuretic Peptide May 06, 2012 6:30am 36 [...] 2011 9:06pm Name: BRISEIDA WOODALL Unit #: [id number] : 1970 Sex: F Loc / Svc: ED DOS: 09/14/14 Signed Report #: [id number] DIAGNOSTIC IMAGING REPORT TYPE OF EXAM: CHEST, [...] Date/Time Departed Emergency Room [facility] 09/14/14 1:20pm Departed Emergency Room [facility] 07/03/14 1:27am Recent Diagnosis
--- OUTSIDE RECORDS SUMMARY | 2017-02-15 03:12 | XMS REPORT | Continuity of Care Document ---
Author Author [facility] Organization [facility] Address Unknown Phone Unavailable Support Name Relationship Address Phone JENNIFER OCHOA MD Caregiver [address] [place] [address] [place] [address] BURT BERRY APRN Caregiver [address] [place] [phone] CALISTAKYLE CHAVIRA Next Of Kin Unknown [phone] CP Insurance Providers Payer Name Policy Number [...] F (96.8 - 99.1) Temperature (Calculated Celsius) 36.94668 degrees C (36.0 - 37.3) Pulse Rate [...] 28, 2014 10:55pm 9.6 % H 0-9.0 SH-Vss-A-Type Natriuretic Peptide November 28, 2014 10:55pm 326 [...] Has specimen been collected/obtained? Y Urine Specific [place] December 17, 2014 2:35am <=1.005 L - [...] 2014 2:00pm Name: BRISEIDA WOODALL Unit #: [id number] : 1970 Sex: F Loc / Svc: ED DOS: 11/28/14 Signed Report #: [id number] DIAGNOSTIC IMAGING REPORT TYPE OF EXAM: CHEST, [...] Encounters Encounter Location Date/Time Departed Emergency Room [facility] 12/17/14 2:35am Departed Emergency Room [facility] 11/28/14 10:09pm Departed Emergency Room [facility] 11/26/14 12:34am Departed Emergency Room [facility] 10/30/14 2:11am Departed Emergency Room [facility] 10/28/14 11:41pm Departed Emergency Room [facility] 10/04/14 2:05pm Departed Emergency Room [facility] 09/19/14 5:45pm Recent Diagnosis
--- OUTSIDE RECORDS SUMMARY | 2017-02-15 03:12 | XMS REPORT | Continuity of Care Document ---
Author Author [facility] Organization [facility] Address Unknown Phone Unavailable Support Name Relationship Address Phone JANUARYDULCE DO Caregiver [address] [place] [address] Unavailable JANET RUIZ APRN Caregiver [address] [place] [address] Unavailable KYLE GRIGSBY Next Of Kin [address] [place] [address] Insurance Providers Guarantor Jose CLupei Address [address] [place] [address] Email [email or web address] Payer Self Pay Subscriber's Name Briseida Woodall Relationship 18 Self Chief Complaint and Reason for Visit Chief Complaint Flank Pain Reason for Visit [id number] Problems Active Problems Medical Problem Onset Date [...] & vomiting Unknown Ureterolithiasis Unknown Ureterolithiasis Unknown Ureterolithiasis Unknown Medications Current [...] as needed for Shortness Of Air Hydrocodone/Acetaminophen ([place] 5-325 Tablet) 5-325 Tablet 1 Tab Oral Q6h/ 0300,0900,1500,2100 as needed for Pain 20 Tablet 02/09/17 Ondansetron (Zofran Odt) 4 Mg Tab.rapdis 4 Mg Oral Four Times Daily as needed for Nausea &/Or Vomiting 20 Tablet 02/09/17 Past Home Medications Medication Directions Ordered Status Fluticasone/Salmeterol (Advair 100-50 Diskus) 1 Disk W/Dev Inhaler, 1 Puff Oral Inhalation Twice A Day 02/15/15 Discontinued Meclizine Hcl 25 Mg Tablet, 25 Mg Oral Twice A Day 05/16/15 Discontinued Miscellaneous Information (No Known Medications) Misc, 05/06/12 Discontinued Tamsulosin Hcl (Flomax) 0.4 Mg Capsule, 0.4 Mg Oral Bedtime 10/21/16 Discontinued Social History Social History Problem Response Recorded Date/Time Onset Date Status Hx Substance Use No 02/09/2017 1:40am Not Applicable Not Applicable Hx Alcohol Use No 02/09/2017 1:40am Not Applicable Not Applicable Tobacco Usage smoke 12/05/2013 3:27am Not Applicable Not Applicable Query Response Start Date Stop Date Smoking Status Unknown if ever smoked Hospital Discharge Instructions No hospital discharge instructions. Plan of Care Discharge Date 02/09/17 3:42am Disposition 01 DISCHARGED HOME, SELF-CARE Condition at Discharge Improved Instructions/Education Provided Kidney Stones (ED) Prescriptions See Medication Section Referrals JANET RUIZ APRN Order Date: 1 Week Address: [address] [place] [phone] Note: Additional Instructions/Education You have a kidney stone. Drink lots of water , use naproxen or ibuprofen to help with your pain. Only take the norco if the naproxen does not improve your pain. Follow up with your doctor in the next week to ensure that you have passed the stone. Care Plan and Goals Physician Care Plan Problem: Ureterolithiasis Goal: Follow up with primary care provider Instructions: Take medications and follow care plan as discussed/written Functional Status No functional status results. Allergies, Adverse Reactions, Alerts Allergen Type Severity Reaction Status Last Updated Penicillin Allergy Unknown Active 02/09/17 Latex Allergy Mild MILD IRRITATON PER PT Active 02/09/17 Aspirin Allergy Severe HIVES AND "THROAT LOCKS UP" Active 02/09/17 Promethazine Allergy Unknown Active 02/09/17 Tamsulosin Adverse Reaction Unknown vomiting Active 02/09/17 FLU Allergy Unknown Active 09/14/14 Immunizations Query Response on File Recorded Date/Time Hx Influenza Vaccination N REPORTS IT MAKES HER SICK 06/12/15 10:30pm Hx Pneumococcal Vaccination No 06/12/15 10:30pm Hx Tetanus, Diptheria, Pertussis No 06/12/15 10:30pm Hx Influenza Vaccination N REPORTS IT MAKES HER SICK 06/12/15 10:30pm Hx Tetanus, Diptheria, Pertussis No 06/12/15 10:30pm DTaP Vaccine History 201402/09/17 1:40am Influenza Vaccine Hx ALLERGY 02/09/17 1:40am Vital Signs Acute Vital Signs Vital Response Date/Time Temperature (Fahrenheit) 98.3 deg F (96.8 - 99.1) 02/09/2017 3:42am Temperature (Calculated Celsius) 36.85806 degrees C (36.0 - 37.3) 02/09/2017 3:42am Pulse Rate (adult) 98 bpm (60 - 100) 02/09/2017 3:42am Respiratory Rate 20 breaths/min (10 - 20) 02/09/2017 3:42am O2 Sat by Pulse Oximetry 96 % (90 - 100) 02/09/2017 3:42am Blood Pressure 119/78 mm Hg 02/09/2017 3:42am Height (Feet) 4 feet 02/09/2017 1:33am Height (Inches) 11.00 inches 02/09/2017 1:33am Weight (Kilograms) 58.800 kg 02/09/2017 1:33am Body Mass Index (BMI) 26.0 02/09/2017 1:33am Results Laboratory Results Test Name Result Units Flags Reference Collection Date/Time Result Date/ Time Comments White Blood Count 11.4 T/MM3 H 4.5-11.0 02/09/2017 2:00am 02/09/2017 2: 10am Red Blood Count 4.31 M/MM3 4.00-5.20 02/09/2017 2:00am 02/09/2017 2: 10am Hemoglobin 13.0 GM/DL 12-16 02/09/2017 2:00am 02/09/2017 2:10am Hematocrit 39.1 % 36-46 02/09/2017 2:0002/09/2017 2:10am Mean Corpuscular Volume 90.7 UM3 80-100 02/09/2017 2:00am 02/09/2017 2: 10am Mean Corpuscular Hemoglobin 30.2 UUG 26-34 02/09/2017 2:00am 2016 2:10am Mean Corpuscular Hemoglobin Concent 33.2 GM/DL 31-37 02/09/2017 2:00am 02/09/2017 2:10am RDW Standard Deviation 43.8 FL 36.9-50.2 02/09/2017 2:00am 02/09/2017 2 :10am Platelet Count 355 T/MM3 130-400 02/09/2017 2:0002/09/2017 2:10am Mean Platelet Volume 9.4 UM3 9.4-12.4 02/09/2017 2:0002/09/2017 2: 10am Neutrophils (%) (Auto) 56.8 % 33-66 02/09/2017 2:00am 02/09/2017 2: 10am Lymphocytes (%) (Auto) 33.1 % 23-45 02/09/2017 2:0002/09/2017 2: 10am Monocytes (%) (Auto) 7.4 % 0-9.0 02/09/2017 2:0002/09/2017 2:10am Eosinophils (%) (Auto) 2.1 % 0-4 02/09/2017 2:00am 02/09/2017 2:10am Basophils (%) (Auto) 0.4 % 0-2 02/09/2017 2:00am 02/09/2017 2:10am Immature Granulocyte % (Auto) 0.2 % 0.0-0.5 02/09/2017 2:00am 2016 2:10am Absolute Neutrophils (auto) 6.5 T/MM3 1.8-7.7 02/09/2017 2:00am 2016 2:10am Absolute Lymphocytes (auto) 3.8 T/MM3 1-4.8 02/09/2017 2:00am 2016 2:10am Absolute Monocytes (auto) 0.9 T/MM3 H 0-0.8 02/09/2017 2:00am 2016 2:10am Absolute Eosinophils (auto) 0.2 T/MM3 0-0.5 02/09/2017 2:00am 2016 2:10am Absolute Basophils (auto) 0.1 T/MM3 0-0.2 02/09/2017 2:00am 02/09/2017 2:10am Absolute Immature Granulocyte (auto 0.02 T/MM3 0.00-0.03 02/09/2017 2: 00am 02/09/2017 2:10am Icterus Index < 2 0-7 02/09/2017 2:00am 02/09/2017 2:16am Chemistry Specimen Hemolysis < 15 0-25 02/09/2017 2:00am 02/09/2017 2 :16am 0-25: Specimen Exhibited No Hemolysis. Turbidity < 20 0-20 02/09/2017 2:00am 02/09/2017 2:16am Sodium Level 143 MEQ/L 134-144 02/09/2017 2:00am 02/09/2017 2:16am Potassium Level 3.8 MEQ/L 3.6-5 02/09/2017 2:00am 02/09/2017 2:16am Chloride Level 105 MEQ/L 98-107 02/09/2017 2:00am 02/09/2017 2:16am Carbon Dioxide Level 27 MEQ/L 22-30 02/09/2017 2:00am 02/09/2017 2: 16am Anion Gap 11 MEQ/L 5-15 02/09/2017 2:00am 02/09/2017 2:16am Blood Urea Nitrogen 15.0 MG/DL 7-17 02/09/2017 2:00am 02/09/2017 2: 16am Creatinine 0.7 MG/DL 0.7-1.2 02/09/2017 2:00am 02/09/2017 2:16am BUN/Creatinine Ratio 21 RATIO 6-26 02/09/2017 2:00am 02/09/2017 2:16am Glomerular Filtration Rate Calc 90 02/09/2017 2:00am 02/09/2017 2: 16am Glucose Level 95 MG/DL 65-110 02/09/2017 2:00am 02/09/2017 2:16am Calculated Osmolality 276 MOSM/KG 261-280 02/09/2017 2:00am 02/09/2017 2:16am Calcium Level 9.3 MG/DL 8.4-10.2 02/09/2017 2:00am 02/09/2017 2:16am Urine Collection Type CLEANC[place]-MIDSTREAM 02/09/2017 1:55am 2016 2:08am Urine Color YELLOW YELLOW 02/09/2017 1:55am 02/09/2017 2:08am Urine Turbidity CLEAR CLEAR 02/09/2017 1:55am 02/09/2017 2:08am Urine Specific [place] 1.010 L 1.015-1.025 02/09/2017 1:55am 2016 2:08am Urine pH 5.5 5.0-8.0 02/09/2017 1:55am 02/09/2017 2:08am Urine Leukocyte Esterase NEGATIVE NEGATIVE 02/09/2017 1:55am 2016 2:08am Urine Nitrite NEGATIVE NEGATIVE 02/09/2017 1:55am 02/09/2017 2:08am Urine Protein NEGATIVE NEGATIVE 02/09/2017 1:55am 02/09/2017 2:08am Urine Glucose (UA) NEGATIVE NEGATIVE 02/09/2017 1:55am 02/09/2017 2: 08am Urine Ketones NEGATIVE NEGATIVE 02/09/2017 1:55am 02/09/2017 2:08am Urine Urobilinogen 0.2 EU/DL NORMAL 02/09/2017 1:55am 02/09/2017 2: 08am Urine Bilirubin NEGATIVE NEGATIVE 02/09/2017 1:55am 02/09/2017 2: 08am Urine Blood 2+ A NEGATIVE 02/09/2017 1:55am 02/09/2017 2:08am Urine WBC 3-5 /HPF 0-5 02/09/2017 1:55am 02/09/2017 2:14am Urine RBC 0-1 /HPF 0-3 02/09/2017 1:55am 02/09/2017 2:14am Urine Bacteria NONE SEEN NEGATIVE 02/09/2017 1:55am 02/09/2017 2: 14am Urine Mucus PRESENT 02/09/2017 1:55am 02/09/2017 2:14am Urine Culture Indicated CULT NOT INDICATED 02/09/2017 1:55am 2016 2:14am Procedures No known history of procedures. Encounters Encounter Location Arrival/Admit Date Discharge/Depart Date Attending Provider Departed Emergency Room [facility] 02/09/17 1:15am 02/09/17 3: 42am DULCE WALDEN DO Recent Diagnosis
--- OUTSIDE RECORDS SUMMARY | 2017-02-15 03:12 | XMS REPORT | Continuity of Care Document ---
Author Author [facility] Organization [facility] Address Unknown Phone Unavailable Support Name Relationship Address Phone SHELLEY ROCK MD Caregiver [facility] [address] [place] [address] Unavailable BURT BERRY APRN Caregiver [address] [address] CALISTA KYLE Next Of Kin Unknown [phone] CP Insurance Providers Payer Name Policy Number [...] F (96.8 - 99.1) Temperature (Calculated Celsius) 37.11961 degrees C (36.0 - 37.3) Pulse Rate [...] Has specimen been collected/obtained? Y Urine Specific [place] September 14, 2014 3:00pm 1.010 L - [...] Report October 03, 2011 9:59pm REFERENCE LAB [id number] - Chlamydia trachomatis Amplified DNA October 01, [...] September 19, 2014 5:32pm < 2 0-7 RO-Rov-D-Type Natriuretic Peptide May 06, 2012 6:30am 36 [...] 2014 2:00pm Name: BRISEIDA WOODALL Unit #: [id number] : 1970 Sex: F Loc / Svc: ED DOS: 09/14/14 Signed Report #: [id number] DIAGNOSTIC IMAGING REPORT TYPE OF EXAM: CHEST, [...] Room [facility] 09/14/14 1:20pm Departed Emergency Room [facility] 07/03/14 1:27am Recent Diagnosis
--- OUTSIDE RECORDS SUMMARY | 2017-02-15 03:12 | XMS REPORT | Continuity of Care Document ---
Author Author [facility] Organization [facility] Address Unknown Phone Unavailable Support Name Relationship Address Phone JENNIFER OCHOA MD Caregiver [address] [place] [address] [place] [address] BURT BERRY APRN Caregiver [address] [place] [address] CALISTAKYLE CHAVIRA Next Of Kin Unknown [phone] CP Insurance Providers Payer Name Policy Number [...] F (96.8 - 99.1) Temperature (Calculated Celsius) 36.89457 degrees C (36.0 - 37.3) Pulse Rate [...] Has specimen been collected/obtained? Y Urine Specific [place] September 14, 2014 3:00pm 1.010 L - [...] Report October 03, 2011 9:59pm REFERENCE LAB [id number] - Chlamydia trachomatis Amplified DNA October 01, [...] September 19, 2014 5:32pm < 2 0-7 PY-Aeo-D-Type Natriuretic Peptide May 06, 2012 6:30am 36 [...] 2014 2:00pm Name: BRISEIDA WOODALL Unit #: [id number] : 1970 Sex: F Loc / Svc: ED DOS: Signed Report #: [id number] DIAGNOSTIC IMAGING REPORT TYPE OF EXAM: SHOULDER [...] Location Date/Time Registered Emergency Room [facility] 10/28/14 11:41pm Departed Emergency Room [facility] 10/04/14 2:05pm Departed Emergency Room [facility] 09/19/14 5:45pm Departed Emergency Room [facility] 09/14/14 1:20pm Recent Diagnosis
--- NOTE | 2017-02-15 03:16 | NUR ---
PROVIDER DR. GUEVARA IN ROOM WITH PT.
--- NOTE | 2017-02-15 03:24 | ERPDOC ---
Departure Disposition Decision Date: February 15, 2017 Disposition Decision Time: 03:24 Disposition: 01 DISCHARGED HOME, SELF-CARE Impression Impression Impression: Primary Impression: Shoulder pain, left Severity: Moderate Condition: Improved Seen By: Physician only Referrals: JANET RUIZ APRN (Family) Patient Instructions: Shoulder Sprain (ED) Problems/Meds/Labs Reviewed?: Yes Medications reviewed and manag: Yes Additional Instructions: Flexeril one half to one tablet twice daily as needed for shoulder pain. Follow-up with her primary care provider as needed. Follow up care ordered?: Yes Mental Status: Alert Scripts Cyclobenzaprine HCl (Cyclobenzaprine HCl) 10 Mg Tablet 0.5-1 TAB PO BID, #20 TAB MAY CAUSE DROWSINESS OR DIZZINESS Prov: LELA GUEVARA MD 02/15/17 HPI - Upper Extremity General Chief Complaint: Upper Extremity Injury Stated Complaint: LEFT SHOULDER/ARM PAIN Time Seen by MD: 03:20 HPI - Upper Extremity Initial Comments 39-year-old female with left shoulder pain. This has been going on for several weeks. Patient notes pain when she lifts with the left arm. Pain is fairly minor , but was bothering her tonight and she could not sleep. This is abnormal as usually the pain settles down at night. She has no injury that she knows of. No other complaints at this time Allergies: Coded Allergies: aspirin (Verified Allergy, Severe, HIVES AND "THROAT LOCKS UP", 02/15/17) Latex, Natural Rubber (Verified Allergy, Mild, MILD IRRITATON PER PT, 02/15) Penicillins (Verified Allergy, Unknown, 02/15/17) promethazine (Verified Allergy, Unknown, 02/15/17) tamsulosin (Verified Adverse Reaction, Unknown, vomiting, 02/15/17) Uncoded Allergies: FLU (Allergy, Unknown, 09/14/14) Past History Past Medical History Hx Echocardiogram: No Respiratory: asthma GI: GERD Female: kidney stones Psychological: anxiety Surgical History General: appendix Reproductive/: hysterectomy Joint: knee Family History Family PMH: FOUND: [place], diabetes, hypercholesterolemia, hypertension Vaccines Hx Influenza Vaccination: No (REPORTS IT MAKES HER SICK) Hx Pneumococcal Vaccination: No Hx Tetanus, Diptheria, Pertuss: No Social History # of Packs/Tins per Day: .5 Sexuality: male partner Review of Systems Musculoskeletal General: see HPI All other Systems All Other Systems: Reviewed and Negative Physical Exam General General Nourishment: well nourished, well developed, appears stated age, no acute distress General Body Habitus: well groomed Vitals and Pain Weight: Kilograms: Height (feet): 4 Height (inches): 11.00 Triage Pain Scale: Normal Exams: Chest/Resp: Clear all jimenez, with good airflow, and symmetry bilaterally CV: Regular rate and rhythm, without murmur or gallop, Pulses 2+ all extremities, capillary refill, <2 seconds all ext., no pedal edema noted Neurologic: Patient is alert, and oriented, cranial nerves, motor/sensory/ cerebellar, exams w/o gross deficits, to observation Musculoskeletal (brief) Comments Shoulder has Pain with abduction against resistance, pain with extension against resistance. Tenderness posterior suprascapular. Differential Diagnoses Considering: Other (rotator cuff, scapular strain) Progress Progress Progress Patient is very pleasant, does have some chronic cognition issues. She comes in often for very simple pains and just wants someone to tell her that she is okay and give her something for at the moment. She is okay for a Toradol shot, 30 mg IM. Also given 10 mg Flexeril. I gave her small prescription for Flexeril to be used as needed for muscle spasm. Recommend she try one half to one tab. LELA GUEVARA MD February 15, 2017 03:24
[2017-02-15] MEDS ORDERED: CYCL-375 PO (03:26)
[2017-02-15] MEDS: CYCLOBENZAPRINE 10 MG TABLET PO ONE (03:35)
[2017-02-15] MEDS: KETOROLAC 30mg/ml INJECTION IM ONE (03:35)
[2017-02-15 03:36] VITALS: BP 105/73; PULSE 68; RESP 15; TEMP 97.5; O2SAT 99
--- OUTSIDE RECORDS SUMMARY | 2017-02-15 03:48 | XMS REPORT | Continuity of Care Document ---
Author Author [facility] Organization [facility] Address Unknown Phone Unavailable Support Name Relationship Address Phone RENNY INMAN DO Caregiver [facility] [address] [place], [place] [phone] BURT BERRY [employer] TECHNICIAN Caregiver [address] [place] [address] KYLE GRIGSBY Next Of Kin Unknown [phone] CP Insurance Providers Payer Name Policy Number [...] F (96.8 - 99.1) Temperature (Calculated Celsius) 36.60979 degrees C (36.0 - 37.3) Pulse Rate [...] Has specimen been collected/obtained? Y Urine Specific [place] September 14, 2014 3:00pm 1.010 L - [...] Report October 03, 2011 9:59pm REFERENCE LAB [id number] - Chlamydia trachomatis Amplified DNA October 01, [...] September 19, 2014 5:32pm < 2 0-7 QU-Lqv-H-Type Natriuretic Peptide May 06, 2012 6:30am 36 [...] 2014 2:00pm Name: BRISEIDA WOODALL Unit #: [id number] : 1970 Sex: F Loc / Svc: ED DOS: Signed Report #: [id number] DIAGNOSTIC IMAGING REPORT TYPE OF EXAM: SHOULDER [...] Encounters Encounter Location Date/Time Departed Emergency Room [facility] 10/04/14 2:05pm Departed Emergency Room [facility] 09/19/14 5:45pm Departed Emergency Room [facility] 09/14/14 1:20pm Recent Diagnosis
--- OUTSIDE RECORDS SUMMARY | 2017-02-15 03:48 | XMS REPORT | Continuity of Care Document ---
Author Author [facility] Organization [facility] Address Unknown Phone Unavailable Support Name Relationship Address Phone BURT BERRY APRN Caregiver [address] [place] [phone] CRICKET BOLAND MD Caregiver [facility] [place] [address] KYLE GRIGSBY Next Of Kin Unknown [phone] CP Insurance Providers Payer Name Policy Number [...] F (96.8 - 99.1) Temperature (Calculated Celsius) 36.80232 degrees C (36.0 - 37.3) Pulse Rate [...] Report October 03, 2011 9:59pm REFERENCE LAB [id number] - Lymphocytes # (Auto) October 30, 2014 [...] 30, 2014 2:00am 9.4 % H 0-9.0 IZ-Msp-J-Type Natriuretic Peptide October 30, 2014 2:00am 88 [...] Has specimen been collected/obtained? Y Urine Specific [place] September 14, 2014 3:00pm 1.010 L - [...] 2014 2:00pm Name: BRISEIDA WOODALL Unit #: [id number] : 1970 Sex: F Loc / Svc: ED DOS: 10/30/14 Signed Report #: [id number] DIAGNOSTIC IMAGING REPORT TYPE OF EXAM: CHEST, [...]
--- OUTSIDE RECORDS SUMMARY | 2017-02-15 03:48 | XMS REPORT | Continuity of Care Document ---
Author Author [facility] Organization [facility] Address Unknown Phone Unavailable Support Name Relationship Address Phone SHELLEY ROCK MD Caregiver [facility] [address] [place] [address] Unavailable BURT BERRY APRN Caregiver [address] [place] [address] KYLE GRIGSBY Next Of Kin [address] [place] [address] CP Insurance Providers Payer Name Policy Number [...] F (96.8 - 99.1) Temperature (Calculated Celsius) 35.60925 degrees C (36.0 - 37.3) Pulse Rate [...] Has specimen been collected/obtained? Y Urine Specific [place] October 01, 2011 9:20pm 1.015 - Has [...] Report October 03, 2011 9:59pm REFERENCE LAB [id number] - Chlamydia trachomatis Amplified DNA October 01, 2011 9:06pm Ref lab rpt scanned - --- 10/03/11 [id number] ---CHLAMDNA previously reported as: SENT OUT Glomerular Filtration Rate Calc May 06, 2012 6:30am 109 - Immature Granulocyte # (Auto) May 06, 2012 6:30am 0.03 T/MM3 N 0.00- 0.03 Immature Granulocyte % (Auto) May 06, 2012 6:30am 0.2 % N 0.0-0.5 MU-Beq-I-Type Natriuretic Peptide May 06, 2012 6:30am 36 [...] 2011 9:06pm Name: BRISEIDA WOODALL Unit #: [id number] : 1970 Sex: F Loc / Svc: ED DOS: 06/06/14 Signed Report #: [id number] DIAGNOSTIC IMAGING REPORT TYPE OF EXAM: RADIUS/ULNA RIGHT 2 VIEW Dictated By: ENRIKE VINES MD INDICATION: ITS.REASON: fall, pain RADIUS/ULNA RIGHT 2 VIEW: Comparison: March 07, 2014 Findings: There is no acute fracture, dislocation or malalignment identified. Impression: No acute osseous abnormality. . Procedures No known history of procedures. Encounters Encounter Location Date/Time Departed Emergency Room [facility] 07/03/14 1:27am Departed Emergency Room [facility] 06/06/14 11:25pm Recent Diagnosis
--- OUTSIDE RECORDS SUMMARY | 2017-02-15 03:48 | XMS REPORT | Continuity of Care Document ---
Author Author [facility] Organization [facility] Address Unknown Phone Unavailable Support Name Relationship Address Phone BURT BERRY APRN Caregiver [address] [place] [phone] OBEY BRANCH MD Caregiver [address] [place] [address] [place] [phone] KYLE GRIGSBY Next Of Kin Unknown [phone] CP Insurance Providers Payer Name Policy Number [...] F (96.8 - 99.1) Temperature (Calculated Celsius) 36.35316 degrees C (36.0 - 37.3) Pulse Rate [...] Report October 03, 2011 9:59pm REFERENCE LAB [id number] - Lymphocytes # (Auto) November 28, 2014 [...] 28, 2014 10:55pm 9.6 % H 0-9.0 LV-Ujj-D-Type Natriuretic Peptide November 28, 2014 10:55pm 326 [...] Has specimen been collected/obtained? Y Urine Specific [place] November 28, 2014 11:51pm >=1.030 H - [...] 2014 2:00pm Name: BRISEIDA WOODALL Unit #: [id number] : 1970 Sex: F Loc / Svc: ED DOS: 11/28/14 Signed Report #: [id number] DIAGNOSTIC IMAGING REPORT TYPE OF EXAM: CHEST, [...] Encounters Encounter Location Date/Time Departed Emergency Room [facility] 11/28/14 10:09pm Departed Emergency Room [facility] 11/26/14 12:34am Departed Emergency Room [facility] 10/30/14 2:11am Departed Emergency Room [facility] 10/28/14 11:41pm Departed Emergency Room [facility] 10/04/14 2:05pm Departed Emergency Room [facility] 09/19/14 5:45pm Departed Emergency Room [facility] 09/14/14 1:20pm Recent Diagnosis
--- OUTSIDE RECORDS SUMMARY | 2017-02-15 03:48 | XMS REPORT | Continuity of Care Document ---
Author Author [facility] Organization [facility] Address Unknown Phone Unavailable Support Name Relationship Address Phone BURT BERRY APRN Caregiver [address] [place] [address] CRICKET BOLAND MD Caregiver [facility] [place] [address] KYLE GRIGSBY Next Of Kin [address] [place] [address] CP Insurance Providers Payer Name [...] F (96.8 - 99.1) Temperature (Calculated Celsius) 35.06877 degrees C (36.0 - 37.3) Pulse Rate [...] Has specimen been collected/obtained? Y Urine Specific [place] October 01, 2011 9:20pm 1.015 - Has [...] Report October 03, 2011 9:59pm REFERENCE LAB [id number] - Chlamydia trachomatis Amplified DNA October 01, 2011 9:06pm Ref lab rpt scanned - --- 10/03/112141 ---CHLAMDNA previously reported as: SENT OUT Glomerular Filtration Rate Calc May 06, 2012 6:30am 109 - Immature Granulocyte # (Auto) May 06, 2012 6:30am 0.03 T/MM3 N 0.00- 0.03 Immature Granulocyte % (Auto) May 06, 2012 6:30am 0.2 % N 0.0-0.5 MN-Kwe-G-Type Natriuretic Peptide May 06, 2012 6:30am 36 [...] Encounters Encounter Location Date/Time Registered Emergency Room [facility] 06/06/14 11:25pm Recent Diagnosis
--- OUTSIDE RECORDS SUMMARY | 2017-02-15 03:49 | XMS REPORT | Continuity of Care Document ---
Author Author [facility] Organization [facility] Address Unknown Phone Unavailable Support Name Relationship Address Phone JENNIFER OCHOA MD Caregiver [address] [place] [address] [place] [address] BURT BERRY APRN Caregiver [address] [place] [address] CALISTAKYLE CHAVIRA Next Of Kin Unknown [phone] CP Insurance Providers Payer Name Policy Number [...] F (96.8 - 99.1) Temperature (Calculated Celsius) 36.78109 degrees C (36.0 - 37.3) Pulse Rate [...] Has specimen been collected/obtained? Y Urine Specific [place] September 14, 2014 3:00pm 1.010 L - [...] Report October 03, 2011 9:59pm REFERENCE LAB [id number] - Chlamydia trachomatis Amplified DNA October 01, [...] September 19, 2014 5:32pm < 2 0-7 QW-Che-V-Type Natriuretic Peptide May 06, 2012 6:30am 36 [...] 2014 2:00pm Name: BRISEIDA WOODALL Unit #: [id number] : 1970 Sex: F Loc / Svc: ED DOS: Signed Report #: [id number] DIAGNOSTIC IMAGING REPORT TYPE OF EXAM: SHOULDER [...] Encounters Encounter Location Date/Time Registered Emergency Room [facility] 10/28/14 11:41pm Departed Emergency Room [facility] 10/04/14 2:05pm Departed Emergency Room [facility] 09/19/14 5:45pm Departed Emergency Room [facility] 09/14/14 1:20pm Recent Diagnosis
--- OUTSIDE RECORDS SUMMARY | 2017-02-15 03:49 | XMS REPORT | Continuity of Care Document ---
Author Author [facility] Organization [facility] Address Unknown Phone Unavailable Support Name Relationship Address Phone JENNIFER OCHOA MD Caregiver [address] [place] [address] [place] [address] BURT BERRY APRN Caregiver [address] [place] [phone] CALISTAKYLE CHAVIRA Next Of Kin Unknown [phone] CP Insurance Providers Payer Name Policy Number [...] F (96.8 - 99.1) Temperature (Calculated Celsius) 36.14439 degrees C (36.0 - 37.3) Pulse Rate [...] 28, 2014 10:55pm 9.6 % H 0-9.0 YB-Amh-Z-Type Natriuretic Peptide November 28, 2014 10:55pm 326 [...] Has specimen been collected/obtained? Y Urine Specific [place] December 17, 2014 2:35am <=1.005 L - [...] 2014 2:00pm Name: BRISEIDA WOODALL Unit #: [id number] : 1970 Sex: F Loc / Svc: ED DOS: 11/28/14 Signed Report #: [id number] DIAGNOSTIC IMAGING REPORT TYPE OF EXAM: CHEST, [...] Encounters Encounter Location Date/Time Departed Emergency Room [facility] 12/17/14 2:35am Departed Emergency Room [facility] 11/28/14 10:09pm Departed Emergency Room [facility] 11/26/14 12:34am Departed Emergency Room [facility] 10/30/14 2:11am Departed Emergency Room [facility] 10/28/14 11:41pm Departed Emergency Room [facility] 10/04/14 2:05pm Departed Emergency Room [facility] 09/19/14 5:45pm Recent Diagnosis
--- OUTSIDE RECORDS SUMMARY | 2017-02-15 03:49 | XMS REPORT | Continuity of Care Document ---
Author Author [facility] Organization [facility] Address Unknown Phone Unavailable Support Name Relationship Address Phone BURT BERRY APRN Caregiver [address] [place] [phone] OBEY BRANCH MD Caregiver [address] [place] [address] [place] [phone] CALISTA KYLE Next Of Kin [address] [place] [address] CP Insurance Providers Payer Name Policy Number [...] F (96.8 - 99.1) Temperature (Calculated Celsius) 36.89898 degrees C (36.0 - 37.3) Pulse Rate [...] Has specimen been collected/obtained? Y Urine Specific [place] October 01, 2011 9:20pm 1.015 - Has [...] Report October 03, 2011 9:59pm REFERENCE LAB [id number] - Chlamydia trachomatis Amplified DNA October 01, 2011 9:06pm Ref lab rpt scanned - --- 10/03/112141 ---CHLAMDNA previously reported as: SENT OUT Glomerular Filtration Rate Calc May 06, 2012 6:30am 109 - Immature Granulocyte # (Auto) May 06, 2012 6:30am 0.03 T/MM3 N 0.00- 0.03 Immature Granulocyte % (Auto) May 06, 2012 6:30am 0.2 % N 0.0-0.5 AU-Ypf-S-Type Natriuretic Peptide May 06, 2012 6:30am 36 [...] Encounters Encounter Location Date/Time Departed Emergency Room [facility] 03/07/14 12:33pm Recent Diagnosis
--- OUTSIDE RECORDS SUMMARY | 2017-02-15 03:49 | XMS REPORT | Continuity of Care Document ---
Author Author [facility] Organization [facility] Address Unknown Phone Unavailable Support Name Relationship Address Phone BURT BERRY APRN Caregiver [address] [place] [address] OBEY BRANCH MD Caregiver [address] [place] [address] [place] [phone] KYLE GRIGSBY Next Of Kin [address] [place] [address] CP Insurance Providers Payer Name Policy Number [...] F (96.8 - 99.1) Temperature (Calculated Celsius) 36.43868 degrees C (36.0 - 37.3) Pulse Rate [...] Has specimen been collected/obtained? Y Urine Specific [place] September 14, 2014 3:00pm 1.010 L - [...] Report October 03, 2011 9:59pm REFERENCE LAB [id number] - Chlamydia trachomatis Amplified DNA October 01, [...] September 14, 2014 2:09pm < 2 0-7 TG-Tuf-J-Type Natriuretic Peptide May 06, 2012 6:30am 36 [...] 2011 9:06pm Name: BRISEIDA WOODALL Unit #: [id number] : 1970 Sex: F Loc / Svc: ED DOS: 09/14/14 Signed Report #: [id number] DIAGNOSTIC IMAGING REPORT TYPE OF EXAM: CHEST, [...] Encounters Encounter Location Date/Time Departed Emergency Room [facility] 09/14/14 1:20pm Departed Emergency Room [facility] 07/03/14 1:27am Recent Diagnosis
--- OUTSIDE RECORDS SUMMARY | 2017-02-15 03:49 | XMS REPORT | Continuity of Care Document ---
Author Author [facility] Organization [facility] Address Unknown Phone Unavailable Support Name Relationship Address Phone SHELLEY ROCK MD Caregiver [facility] [address] [place] [address] Unavailable BURT BERRY APRN Caregiver [address] [place] [address] CALISTA KYLE Next Of Kin Unknown [phone] CP Insurance Providers Payer Name Policy Number [...] F (96.8 - 99.1) Temperature (Calculated Celsius) 37.81586 degrees C (36.0 - 37.3) Pulse Rate [...] Has specimen been collected/obtained? Y Urine Specific [place] September 14, 2014 3:00pm 1.010 L - [...] Report October 03, 2011 9:59pm REFERENCE LAB [id number] - Chlamydia trachomatis Amplified DNA October 01, [...] September 19, 2014 5:32pm < 2 0-7 SK-Wbn-U-Type Natriuretic Peptide May 06, 2012 6:30am 36 [...] 2014 2:00pm Name: BRISEIDA WOODALL Unit #: [id number] : 1970 Sex: F Loc / Svc: ED DOS: 09/14/14 Signed Report #: [id number] DIAGNOSTIC IMAGING REPORT TYPE OF EXAM: CHEST, [...] Encounters Encounter Location Date/Time Departed Emergency Room [facility] 09/19/14 5:45pm Departed Emergency Room [facility] 09/14/14 1:20pm Departed Emergency Room [facility] 07/03/14 1:27am Recent Diagnosis
== END 2017-02-15 03:36 | disposition home or self-care (01) ==
LOC: ED 03:07
DX: M25.512 Pain in left shoulder (principal)
CPT/HCPCS: 96372